=== PATIENT | male | born 1945 | race Caucasian/White ===

== ENCOUNTER 2016-06-26 06:04 | Observation (INO) ==
[2016-06-26] MEDS ORDERED: ASPIRIN 325 MG TABLET PO STA (06:16)
[2016-06-26] MEDS ORDERED: ASPIRIN 325 MG TABLET ONE (06:29)
--- NOTE | 2016-06-26 06:35 | Emergency Department Note ---
Artemio Taylor Hilary, am scribing for, and in the presence of, Gio Marinelli MD 06: 24. Isis Taylor James D, MD, personally performed the services described in this documentation, ascribed by Huma Ulloa in my presence, and it is both accurate and complete 634 . Arrival - Arrival Chief Complaint: Chest Pain ED Nursing Triage Note: pt was getting ready to come up here for an outpt procedure and started having cp after realizing his bp was high. states he has a pm set at 60 but hr got up to 113 and bp dropped to 70/44. Mode of Arrival: Wheelchair Limitations: No Limitations Source: Patient, Significant other (), RN Notes Reviewed Time Seen by Provider: 06/26/16 06:11 - History of Present Illness HPI Narrative: Pt is a 70 y/o white male presenting to the ED with c/o chest pain which onset this morning. Pt states he was at home when his blood pressure got high, once he got that down his heart started racing. Pt confirms chest pain that is now resolved and SOB on exertion denies diaphoresis and pain was non radiating. Chest pain lasted about 15 min until he took a Nitro, which resolved the issue. His states that his thyroid was removed in January and that when he noticed his BP was high he started to have an "anxiety attack" which is when his chest pain started. No other complaints or problems stated in the ED. Pt has a PMHx Cardiac Dysrhythmia, CHF, CAD, HTN, MO, Pacemaker, Cardiovascular Problems, IDDM, Thyroid Disorder, and Dyslipidemia Onset (ago): minute(s) Consistency: intermittent, now resolved Quality: bloating Allergies/Adverse Reactions: Allergies Allergy/AdvReac Type Severity Reaction Status Date / Time No Known Allergies Allergy Unverified 05/09/16 04:09 Home Medications: Home Medications Medication Instructions Recorded Confirmed Type Aspirin Chew Tab 81 mg PO QAM 10/06/14 06/26/16 History Carvedilol [Coreg] 6.25 mg PO BID MDD Noon and Dinner 10/06/14 06/26/16 History times Digoxin Tab [Lanoxin Tab] 0.125 mg PO DAILY@1200 10/06/14 06/26/16 History Potassium Chloride [Klor-Con M20] 20 meq PO QAM 10/06/14 06/26/16 History Rivaroxaban [Xarelto] 15 mg PO DAILY W/SUPPER 10/06/14 06/26/16 History Calcium (Carbonate) [Caltrate 600] 1,250 mg PO BID MDD Noon and HS 03/14/1611/04 History Furosemide Tab [Lasix Tab] 20 mg PO QAM 03/14/16 06/26/16 History Levothyroxine Tab [Synthroid Tab] 137 mcg PO QAM MDD At 0600 am 03/14/16 History Multivitamin [Multivitamins] 1 each PO BEDTIME 03/14/16 06/26/16 History Nitroglycerin Sl Tab [Nitrostat] 0.4 mg SL Q5M PRN 03/14/16 06/26/16 History Pravastatin Sodium 20 mg PO BEDTIME 03/14/16 06/26/16 History Ranolazine [Ranexa] 500 mg PO BID MDD Doses at noon 03/14/16 06/26/16 History and HS Sacubitril/Valsartan [Entresto 49 1 each PO BID MDD Takes at noon 03/14/1606/26 History mg-51 mg Tablet] and HS metFORMIN [Glucophage] 500 mg PO DAILY W/SUPPER 03/14/16 06/26/16 History Cholecalciferol (Vitamin D3) 50,000 unit PO ONCE MDD Once Weekly 04/02/16 History [Vitamin D3] ALPRAZolam [Xanax] 0.5 mg PO TID PRN #30 tablet 04/27/16 06/26/16 Rx Amiodarone Tab [Cordarone Tab] 400 mg PO BID #60 tablet 04/27/16 06/26/16 Rx Magnesium Chloride [Slow Mag] 128 mg PO BID #60 tablet 04/27/16 06/26/16 Rx Mexiletine [Mexitil] 200 mg PO Q8HR #90 capsule 04/27/16 06/26/16 Rx Review of System - Review of System 12 point system: reviewed and no additional remarkable complaints except as stated - Review of System Constitutional: Absent: diaphoresis, fever Respiratory: Present: respiratory distress (SOB on exertion) Cardiovascular: Present: chest pain, dyspnea on exertion Gastrointestinal: Absent: nausea, vomiting Musculoskeletal: Absent: arm pain Neurological: Absent: weakness, confusion Medical,Surgical,& Family Hx - Medical History Cardio: History of: Cardiac Dysrhythmia (A-fib), CHF, CAD, Hypertension, MO, Pacemaker (defibulator), Cardiovascular Problems (20% Ejection fraction) Psychological: History of: Anxiety Disorders Neurology: History of: Vertigo HEENT: History of: Eye Problem (cataracts bilateral) Endocrine: History of: Diabetes Mellitus (IDDM), Dyslipidemia, Thyroid Disorder (Thyroidectomy) - Surgical History Cardiac Surgeries: Sugical HX of: Femoral-Popliteal Bypass Graft, Cardiac Catheterization, Cardiac Surgery (CABG ), Internal Defibrillator Thoracic Surgeries: Patient denies;: Organ Transplant, Lobectomy Neurologic Surgeries: Patient denies: Neurologic Surgery HEENT Surgeries: Surgical HX of: Eye Surgery (Cataracts), Thyroid 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 VITAL SIGNS: Temperature: 96.9 Pulse: 60 Respiratory: 16 Blood Pressure: 104/ 66 O2Sat: 99 HEENT: Head is normocephalic and atraumatic. Pupils are equally round and reactive to light. Extraocular movement are intact. Oropharynx is benign with moist mucous membranes. NECK: Neck is soft and supple without tenderness. There are no masses. There is no lymphadenopathy. LUNGS: Lungs are clear to auscultation bilaterally. Chest rises symmetrically. There is no chest wall tenderness. CV: Heart is regular rate and rhythm without murmurs, rubs, or gallops. ABDOMEN: Abdomen is soft, non-tender to palpation. There are no abnormal masses palpated. There is no organomegaly. Bowel sounds are present and active. SKIN: Skin is warm and dry. No rash. EXTREMITIES: Patient has full range of motion without tenderness. There is no pedal edema. NEUROLOGIC: Awake, alert, and oriented x4. Cranial nerves II through XII are grossly intact. There are no motorsensory deficits. PSYCHIATRIC: Normal affect. Anxious Mood Vital Signs: Vital Signs Temperature 96.9 F L 06/26/16 06:07 Pulse Rate 60 06/26/16 09:15 Respiratory Rate 18 06/26/16 09:15 Blood Pressure 145/81 06/26/16 09:15 O2 Sat by Pulse Oximetry 97 06/26/16 09:15 Course - Consultations Consultation #1: Discussed with Dr. Lafleur video production coordinator for Dr. Graham. Patient will be admitted to his service. Initial orders written for him. Patient care will be assumed by Dr. Lafleur on patient's arrival to the [facility]. Time: 08:59 Results - Labs CBC & BMP: 06/26/16 06:11 06/26/16 06:11 Lab Results: I have reviewed the patients labs Labs: Laboratory Tests 06/26/16 07:30 Urine Color Yellow Urine Appearance Clear Urine Urobilinogen < 2.0 H Laboratory Tests 06/26/16 06/26/16 06/26/16 06:11 06:11 06:11 WBC 8.0 Hgb 16.0 Hct 46.2 Plt Count 249 INR 1.5 Troponin I < 0.015 Laboratory Tests 06/26/16 06/26/16 06/26/16 06:11 06:11 06:11 Hct 46.2 MPV 12.4 H [place] # (Auto) 1.0 H Sodium 136 Potassium 4.3 Chloride 102 Carbon Dioxide 25 BUN 20 H Creatinine 1.70 H Glucose 125 H Total Bilirubin 1.50 H AST 63 H ALT 90 H Troponin I B-Natriuretic Peptide 121 H Globulin 3.7 H Albumin/Globulin Ratio 1.0 L 06/26/16 06:11 Hct MPV [place] # (Auto) Sodium Potassium Chloride Carbon Dioxide BUN Creatinine Glucose Total Bilirubin AST ALT Troponin I < 0.015 B-Natriuretic Peptide Globulin Albumin/Globulin Ratio Laboratory Tests 06/26/16 06/26/16 06/26/16 06:11 06:11 07:30 WBC 8.0 RBC 4.69 Hgb 16.0 B-Natriuretic Peptide 121 H Urine Color Yellow Urine Appearance Clear Urine Urobilinogen < 2.0 H - EKG EKG results: interpreted by ERMD - Impressions EKG: Electronic dual-chamber pacemaker. No further interpretation possible. - Diagnostic Findings Procedure: Chest x-ray: image reviewed by me (No pleural effusions, no cardiomegaly, no infiltrates, old median sternotomy, AICD in position with leads in place.) Disposition Clinical Impression: Chest pain, CAD (coronary artery disease), Cardiomyopathy, Anxiety Case discussed with: patient Condition: Stable
--- NOTE | 2016-06-26 06:56 | XRay Report ---
XR chest 2V Indication: Chest pain Comparison: Chest x-ray dated May 09, 2016 Technique: Frontal and lateral views of the chest Findings: Borderline heart size status post sternotomy. Cardiac pacemaker apparatus again noted. Chronic change of the lungs without focal consolidation, pleural effusion, or pneumothorax. Osseous and surrounding soft tissue structures appear grossly unchanged. IMPRESSION: No acute cardiopulmonary process demonstrated. Borderline heart size without dusty pulmonary edema. PROCEDURE INTERPRETED AT [facility] DEPARTMENT OF RADIOLOGY Final Report Signed by: Dr Merrill Elena
[2016-06-26 07:50] LABS: Basophils # 0.1 10*3/uL (0.0-0.2); Basophils % 0.6 % (0.0-0.8); Eosinophils % 0.5 % (0.00-10.9); Hematocrit 46.2 VOL% (42.0-52.0); Immature Granulocytes % 0.5 %; Immature Granulocytes Absolute 0.04 #; Lymphocytes # 1.8 10*3/uL (1.4-4.0); Lymphocytes % 22.1 % (21.2-54.2); Mean Corpuscular HGB Conc 34.6 GM/DL (32-36); Mean Corpuscular Hemoglobin 34 PG (27-34); Mean Corpuscular Volume 98.5 FL (87-102); Mean Platelet Volume 12.4 FL (9.6-12.0); Neutrophils # 5.1 10*3/uL (1.4-7.4); Neutrophils % 64.3 % (38.7-73.9); Platelet Count 249 T/CUMM (130-400); Red Blood Count 4.69 MC/CUMM (3.8-5.5); Red Cell Distribution Width 13.2 % (9.3-17.3)
[2016-06-26 07:52] LABS: Apearance,Urine CLEAR (Clear); Bilirubin,Urine Negative (Negative); Blood, Urine Negative (Negative); Glucose,Urine (UA) Negative (Negative); Hyaline Casts,Urine 4 /LPF (0-3); Ketones,Urine Negative (Negative); Mucus,Urine Occasional /LPF (Occasional); Nitrite,Urine Negative (Negative); Protein,Urine Negative; Squamous Epithelial Cell,Urine Occasional /HPF (0-10); Urine Color Yellow (Yellow); Urine Specific Gravity 1.014 (1.001-1.035); Urine Urobilinogen < 2.0 EU/DL (0.2-1.0); WBC,Urine <1 /HPF (0-6)
--- NOTE | 2016-06-26 07:54 | EKG Report ---
Stationary ECG Study [facility] Test Date: 06/26/2016 6:08:48 AM Pat Name: JOHN العلي Department: Room: Gender: M Field Nurse: : 1945 Requested by: Gio Angel Order Number: [id number] Reading MD: ALEJANDRINA MCDONALD Intervals [place] Rate: 60 P: 247 [place]: 265 QRS: 261 QRSD: 66 T: 88 QT: 390 QTc: 390 Interpretive Statements ELECTRONIC ATRIAL-VENTRICULAR PACEMAKER Electronically Signed On 07-01-16 22:50:46 CDT by ALEJANDRINA MCDONALD [email or web address]
[2016-06-26 08:03] LABS: Albumin 3.7 G/DL (3.4-5.0); Bilirubin,Total 1.5 MG/DL (0.2-1.0); Calcium 9.1 MG/DL (8.5-10.1); Magnesium 2.3 MG/DL (1.8-2.4); Potassium 4.3 MMOL/L (3.5-5.1); Total Protein 7.4 G/DL (6.4-8.3)
[2016-06-26 08:04] LABS: INR 1.5; PT Patient Result 16.1 SECS; Partial Thromboplastin Time 33.4 SECS (0-40)
--- NOTE | 2016-06-26 09:15 | EKG Report ---
Stationary ECG Study [facility] Test Date: 06/26/2016 9:14:57 AM Pat Name: JOHN العلي Department: Room: 278 Gender: M Bed Placement Coordinator: : 1945 Requested by: Gio Angel Order Number: [id number] Reading MD: ALEJANDRINA MCDONALD Intervals [place] Rate: 60 P: 202 [place]: 156 QRS: 254 QRSD: 184 T: 84 QT: 516 QTc: 516 Interpretive Statements ELECTRONIC ATRIAL PACEMAKER ELECTRONIC VENTRICULAR PACEMAKER Electronically Signed On 07-01-16 23:03:28 CDT by ALEJANDRINA MCDONALD [id number]
[2016-06-26] MEDS ORDERED: ACETAMINOPHEN 325 MG TABLET PO PRN (09:54)
[2016-06-26] MEDS ORDERED: MORPHINE 2 MG/1 ML SYRINGE IV PRN (09:54)
[2016-06-26] MEDS ORDERED: MAGNESIUM SULF RIDER 2 GM in PREMIX 1 EACH IV PRN (09:54)
[2016-06-26] MEDS ORDERED: MAGNESIUM SULF RIDER 4 GM in PREMIX 1 EACH IV PRN (09:54)
[2016-06-26] MEDS ORDERED: ONDANSETRON 4 MG/2 ML VIAL IV PRN (09:54)
[2016-06-26] MEDS ORDERED: ENOXAPARIN 40 MG/0.4 ML SYRINGE SUBCUT SCH (10:00)
[2016-06-26] MEDS: SODIUM CHLORIDE 0.9% 1,000 ML IV SCH (10:29)
--- NOTE | 2016-06-26 11:30 | Cardiology History & Physical ---
<Radhika Frankel E - Last Filed: 06/26/16 11:43> Assessment and Plan - Time spent with patient Time spent with patient: Greater than 30 minutes (due to assessment, plan, documentation, and lengthy interview with patient and ) (1) Chest pain Status: Acute Assessment and plan: SEE PLAN OF CARE LISTED BELOW. Current Visit: Yes (2) CAD (coronary artery disease) Status: Chronic Assessment and plan: SEE PLAN OF CARE LISTED BELOW. Current Visit: Yes (3) ED (generalized anxiety disorder) Status: Chronic Assessment and plan: SEE PLAN OF CARE LISTED BELOW. Current Visit: No (4) Chronic anticoagulation Status: Chronic Assessment and plan: SEE PLAN OF CARE LISTED BELOW. Current Visit: No (5) Diabetes Status: Chronic Assessment and plan: SEE PLAN OF CARE LISTED BELOW. Current Visit: No (6) Dyslipidemia Status: Chronic Assessment and plan: SEE PLAN OF CARE LISTED BELOW. Current Visit: No (7) Hypertension Status: Chronic Assessment and plan: SEE PLAN OF CARE LISTED BELOW. Current Visit: No (8) Hypothyroidism Status: Chronic Assessment and plan: SEE PLAN OF CARE LISTED BELOW. Current Visit: No (9) Ischemic cardiomyopathy Status: Chronic Assessment and plan: SEE PLAN OF CARE LISTED BELOW. Current Visit: No (10) Anxiety attack Status: Acute Assessment and plan: SEE PLAN OF CARE LISTED BELOW. Current Visit: Yes History of Present Illness Chief complaint: chest pain History of present illness: SLACK COOPER: DR. MEDINA (DR. COLE FOR EP) PCP: DR. REHMAN HAND ROUNDER: DR. ROSE ([facility] IN [place], [place]) Mr. Kelsey is a 70 year old male with a known history of coronary artery disease, ischemic cardiomyopathy, atrial flutter s/p cardioversion, chronic anticoagulation, hypertension, dyslipidemia, type 2 diabetes mellitus, renal insufficiency, and severe anxiety. He is status post thyroidectomy February 03, 2016. He is status post three[place]vessel [place] [address] Freitas. He is status post [facility] [facility] defibrillator placement in [place], [place] in 2012. He is status post Impella assisted multivessel coronary intervention with left main stent, mid LAD stent, and OM 2 stent. The patient presented to the emergency department this morning for complaints of chest pain. He reportedly had been in his usual state of health and was on his way to have a tooth pulled this morning and developed midsternal chest pain. He reports he had been very anxious over having this procedure done. Upon arrival to the surgery center, he checked his blood pressure with his home blood pressure monitor and noted his BP to be 72/43 with a HR of 113. He reports he became very concerned over these readings and subsequently took a nitroglycerin for his pain and had his bring him to the emergency room. Upon arrival at the emergency department, his HR had decreased to 65 and his blood pressure was 104/66. He has not had any subsequent epidosed of chest discomfort since. He tells me when he has these episodes, he sometimes feels as if someone is squeezing right at the base of his sternum and releases when he takes a nitroglycerin. He also reports a "gurgling" sensation that seems to radiate from his RUQ and LUQ to his epigastric region when he has this squeezing sensation. He admits a previous history of GERD, but is no longer taking medication for this. Mr. Kelsey' is present at the bedside and reports his anxiety has gotten out of control. She tells me that she is unable to be gone from her for any extended period of time without him becoming very anxious. She tells me that her 's anxiety has gotten so bad, in fact, that their primary doctor has asked her if she needed to be on anxiety medication as well. Mr. Kelsey reports he rarely ever takes his Xanax because he is "afraid of becoming addicted." He also reports checking his blood pressure numerous times every day. He tells me that he experiences this pain frequently and is unable to distinguish his "heart pain" from his anxiety. When asked if he had ever considered seeing a psychologist or psychiatrist, he admits this is not the first time this has been mentioned to him and he was not ready to make the decision to seek further assistance for his anxiety. I strongly encouraged him to consider this option as I believe it could be of great benefit to him and his . Mr. Kelsey was recently hospitalized on April 24 with chest pain and recurrent VT and atrial flutter requiring cardioversion. He was seen by Dr. Cole during that visit and his ICD settings were adjusted. He is now getting therapy for VT >140 bpm. Recent interrogation in April revealed DDDR pacing, normal lead parameters, and no recurrence of VT since he was started on high-dose amiodarone and mexiletine. He underwent cardiac catheterization on April 25, 2016 which revealed an occluded right coronary, patent left main stent, patent LAD stents with calcified vessel, patent OM stents, widely patent VG to PDA and PL branch. At that time, there was a severe mid LAD lesion which was angioplastied with a noncompliant balloon unsuccessfully. He has an appointment with his recreation therapy director, Dr. Rose, on and has an appointment to follow up with Dr. Cole on 07/03/16 at 1230 PM. ASSESSMENT/PLAN: 1. CHEST PAIN - Patient has has 3 sets of negative troponins and no acute EKG changes. I believe his chest pain is likely related to an anxiety attack. Patient underwent cardiac catheterization and was found to have an occluded RCA and 90% stenosis of the mid LAD which was unsuccessfully angioplastied. He otherwise had a patent left main stent, patent LAD stents, patent OM stents, and widely patent grafts to the PDA and PL branch. We will continue medical management of his CAD. I have strongly urged him to consider referral to psychologist/psychiatrist for further management of his anxiety. 2. CORONARY ARTERY DISEASE - Patient underwent cardiac catheterization and was found to have an occluded RCA and 90% stenosis of the mid LAD which was unsuccessfully angioplastied. He otherwise had a patent left main stent, patent LAD stents, patent OM stents, and widely patent grafts to the PDA and PL branch. Continue medical management. 3. GENERALIZED ANXIETY DISORDER - I have strongly urged him to consider referral to psychologist/psychiatrist for further management of his anxiety. He states he will consider seeing someone for this. 4. CHRONIC ANTICOAGULATION - Continue Xarelto 5. DIABETES - Accuchecks ACHS 6. DYSLIPIDEMIA - Continue statin. 7. HYPERTENSION - Continue home medications. Will monitor and adjust as needed. Patient has been instructed to limit checking his blood pressure to once daily. 8. HYPOTHYROIDISM - Continue Synthroid. Check TSH, FT4. Keep follow up appointment with Dr. Rose on . 9. ISCHEMIC CARDIOMYOPATHY - Hemodynamically stable with no overt signs of CHF. 10. ANXIETY ATTACK - I have strongly urged him to consider referral to psychologist/psychiatrist for further management of his anxiety. He states he will consider seeing someone for this. Home Medications Medication Instructions Recorded Confirmed Type Aspirin Chew Tab 81 mg PO QAM 08/19/15 05/09/17 History Carvedilol [Coreg] 6.25 mg PO DAILY@1200,2100 MDD 10/06/14 06/26/16 History Noon and Dinner times Digoxin Tab [Lanoxin Tab] 0.125 mg PO DAILY@1200 10/06/14 06/26/16 History Potassium Chloride [Klor-Con M20] 20 meq PO QAM 10/06/14 06/26/16 History Rivaroxaban [Xarelto] 15 mg PO DAILY W/SUPPER 10/06/14 06/26/16 History Calcium (Carbonate) [Caltrate 600] 1,200 mg PO BID MDD Noon and HS 03/14/1611/04 History Furosemide Tab [Lasix Tab] 20 mg PO QAM 03/14/16 06/26/16 History Levothyroxine Tab [Synthroid Tab] 137 mcg PO QAM MDD At 0600 am 03/14/16 History Nitroglycerin Sl Tab [Nitrostat] 0.4 mg SL Q5M PRN MDD 3 tabs 03/14/16 06/26/16 History Pravastatin Sodium 20 mg PO BEDTIME 03/14/16 06/26/16 History Ranolazine [Ranexa] 500 mg PO 1200,2100 MDD Doses at 03/14/16 06/26/16 History noon and HS Sacubitril/Valsartan [Entresto 49 1 each PO DAILY@1200,2100 MDD 03/14/16 History mg-51 mg Tablet] Takes at noon and HS Cholecalciferol (Vitamin D3) 50,000 unit PO ZAMBRANO MDD Once Weekly 04/02/16 History [Vitamin D3] ALPRAZolam [Xanax] 0.5 mg PO TID PRN #30 tablet MDD 04/27/16 06/26/16 Rx TID Mexiletine [Mexitil] 200 mg PO Q8HR #90 capsule 04/27/16 06/26/16 Rx Amiodarone Tab [Cordarone Tab] 200 mg PO BID 06/26/16 06/26/16 History Magnesium Chloride [Slow Mag] 64 mg PO QID 06/26/16 06/26/16 History Multivit-Min/FA/Lycopen/Lutein 1 tablet PO BEDTIME 06/26/16 06/26/16 History [Centrum Silver Men Tablet] Allergies Allergy/AdvReac Type Severity Reaction Status Date / Time No Known Allergies Allergy Unverified 05/09/16 04:09 Review of systems: - Constitutional: Present: As per HPI. Absent: anorexia, chills, daytime sleepiness, excessive sweating, fever(s), frequent falls, headache(s), increased appetite, lethargy, malaise, night sweats, stops breathing during sleep, weakness, weight gain, weight loss, fatigue. - EENT Eyes: Present: As per HPI. Absent: blurry vision, diplopia, loss of vision Ears: Present: As per HPI. Absent: decreased hearing, ear discharge, ear pain Nose, mouth and throat: Present: As per HPI. Absent: dysphagia, epistaxis, headache(s), hoarseness, lip swelling, nasal congestion, neck mass, neck pain, sinus pressure, sore throat, throat swelling, tongue swelling, vertigo - Cardiovascular: Present: chest pain at rest, dyspnea, as per HPI. Absent: chest pain with activity, dyspnea on exertion, edema, claudication, diaphoresis , radiating jaw, neck or arm pain, lightheadedness, orthopnea, palpitations, PND - Respiratory: Present: dyspnea, as per HPI. Absent: dyspnea on exertion, cough , hemoptysis, wheezing, snoring, pain on inspiration - Gastrointestinal: Present: As per HPI. Absent: abdominal pain, bloating, change in bowel habits, constipation, diarrhea, heartburn, hematemesis, hematochezia, loose stools, melena, nausea, vomiting - Genitourinary: Present: As per HPI. Absent: difficulty urinating, dysuria, flank pain, hematuria, nocturia, urinary frequency, urinary incontinence - Musculoskeletal: Present: As per HPI. Absent: arthralgias, back pain, joint swelling, limited range of motion, muscle cramps, muscle weakness, myalgias - Neurological: Present:abnormal speech (stuttering present since thyroidectomy) , As per HPI. Absent: abnormal gait, behavioral changes, confusion, convulsions , disequilibrium, dizziness, focal weakness, frequent falls, headache(s), memory loss, numbness, paresthesias, radicular pain, syncope, tremor(s) - Psychiatric: Present: anxiety, As per HPI. Absent: confusion, depression, panic attacks - Endocrine: Present: cold intolerance, fatigue, As per HPI. Absent: heat intolerance, polydipsia, polyphagia - Hematologic/Lymphatic: Present: As per HPI. Absent: easy bleeding, easy bruising, lymphadenopathy Medical,Surgical,& Family Hx - Medical History Cardio: History of: Cardiac Dysrhythmia (A-fib), CHF, CAD, Hypertension, [place], Pacemaker (defibulator), Cardiovascular Problems (20% Ejection fraction) Psychological: History of: Anxiety Disorders, Depression Neurology: History of: Vertigo HEENT: History of: Eye Problem (cataracts bilateral) Endocrine: History of: Diabetes Mellitus (IDDM), Dyslipidemia, Thyroid Disorder (Thyroidectomy) Gastrointestinal: History of: GERD - Surgical History Cardiac Surgeries: Sugical HX of: Femoral-Popliteal Bypass Graft, Cardiac Catheterization, Cardiac Surgery (CABG 1990), Internal Defibrillator Thoracic Surgeries: Patient denies;: Organ Transplant, Lobectomy Neurologic Surgeries: Patient denies: Neurologic Surgery HEENT Surgeries: Surgical HX of: Eye Surgery (Cataracts), Thyroid Surgery (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) Abdominal Surgeries: Surgical HX of: Colonoscopy (2013) Orthopedic Surgeries: Surgical HX of;: Implanted Devices (PM/Defibrilator) - Family History Family History: Reports;: Family Heart Disease (mother), Family Hypertension ( mother), Family Stroke (mother) - Social History Smoking Status: Former smoker Frequency of Alcohol Use: None Type of Drug Use: None Marital Status: Lives With:: Spouse Functional capacity: independent ambulation Cardiology Physical Exam - Constitutional Vitals: Vital Signs Temp Pulse Resp BP Pulse Ox 97.9 F 60 18 131/98 98 06/26/16 09:54 06/26/16 09:54 06/26/16 09:54 06/26/16 09:54 06/26/16 09:54 Intake and Output 06/25/16 06/26/16 06/26/16 22:59 06:59 14:59 Other: Weight 210 lb Patient Weight 06/27/16 06:59 Weight 210 lb Exam: General appearance: Pleasant and cooperative. Anxious. Overweight, no acute distress. - Head Head exam: Present: normal inspection, normocephalic, atraumatic. Absent: hematoma, laceration - Eye Eye exam: Present: EOMI. Absent: conjunctival injection, nystagmus, periorbital swelling, scleral icterus, laceration to eyelids Pupils: Present: PERRL. Absent: constricted, dilated, fixed, irregular, unequal - ENT ENT exam: Present: normal exam, normal external ear exam - Neck Neck exam: Present: normal inspection. Absent: lymphadenopathy, meningismus, tenderness, thyromegaly - Respiratory Respiratory exam: Present: clear to auscultation bilaterally. Absent: accessory muscle use, chest wall tenderness - Cardiovascular Cardiovascular exam: Present: regular rate and rhythm, soft systolic murmur. Absent: carotid bruit, gallop, JVD, rubs - GI/Abdominal GI/Abdominal exam: Present: normal bowel sounds, soft. Absent: distended, firm , guarding, hernia, mass, tenderness, rebound. - Extremities Exam Extremities exam: Present: normal inspection, normal capillary refill. Upper extremity pulses 2+. Lower extremity pulses 2+. Absent: calf tenderness, edema -Musculoskeletal Exam Musculoskeletal: Present: No Fluid Collection, No Pain, Normal Range of Motion - Back Exam Back exam: Present: normal inspection. Absent: muscle spasm, vertebral tenderness - Neurological Exam Neurological exam: Present: alert, oriented X3, grossly intact without resting or essential tremor - Psychiatric Psychiatric exam: Present: normal affect, Anxious - Skin Skin exam: Present: normal color, warm, dry, intact. Absent: cyanosis, diaphoretic, rash, urticaria Result/EKG - Labs CBC & BMP: 06/26/16 06:11 06/26/16 06:11 Lab Results: I have reviewed the past 24 hour labs Labs: Laboratory Results - last 24 hr 06/26/16 09:15 Troponin I < 0.015 - EKG EKG results: interpreted by me (AV paced) <Jan Lafleur - Last Filed: 06/26/16 13:35> History of Present Illness History of present illness: Patient is personally interviewed and examined and chart reviewed. His is present at this time. I discussed his case with Radhika Frankel NP. I agree with the assessment and evaluation and plan. Mr. Kelsey is a 70 year old male who is had coronary artery disease as well as AICD implantation. He has had thyroid surgery and is having his Synthroid adjusted, this is followed by an recreation therapy director in [place]. His coronary disease is as noted above and not amenable to any intervention. His ventricular tachycardia that issue but now has been stable with his present dosing of amiodarone and pacemaker. He does have a dual-chamber AICD biventricular system. He is now having a lot of anxiety for the last few months and his states he is very and just doesn't want her to leave the house. Today his episode as noted was when he was going to outpatient surgery for a dental extraction by oral surgery he became anxious and he had some chest pain at which time he used a wrist monitor that he carries with him to see what his blood pressure heart rate was. It read his blood pressure low and his heart rate fast. He though otherwise had no symptomatology. He took sublingual nitroglycerin but arrival here his blood pressure was appropriate as was his heart rate. Since admission he is had 3 negative troponins. His medications remain the same but was placed on pantoprazole on admission from the emergency room. I did discuss with the patient and his to consider going to [facility] psych unit where he can be reevaluated try to work through his anxiety issues. With their workings that he may be able to improve his overall function and quality of life. He is reluctant but will discuss this with social work which we will consult. He continues to do well with discharge tomorrow. Cardiology Physical Exam - Constitutional Vitals: Vital Signs Temp Pulse Resp BP Pulse Ox 97.3 F L 61 20 125/75 95 06/26/16 11:42 06/26/16 12:23 06/26/16 11:42 06/26/16 11:42 06/26/16 11:42 Intake and Output 06/25/16 06/26/16 06/26/16 23:59 07:59 15:59 Other: Weight 95.254 kg Patient Weight 06/26/16 23:59 Weight 95.254 kg Exam: Patient examined and agree with above. Result/EKG - Labs CBC & BMP: 06/26/16 06:11 06/26/16 06:11 Labs: Laboratory Results - last 24 hr 06/26/16 06/26/16 09:15 12:11 Troponin I < 0.015 < 0.015
[2016-06-26] MEDS ORDERED: NITROGLYCERIN SL 0.4 MG TABLET SL PRN (11:56)
[2016-06-26] MEDS ORDERED: DIGOXIN 0.125 MG TABLET PO SCH (12:00)
[2016-06-26] MEDS: RANOLAZINE 500 MG TABLET PO SCH ×2 (12:23→20:44)
[2016-06-26] MEDS: CARVEDILOL 6.25 MG TABLET PO SCH ×2 (12:23→20:44)
[2016-06-26] MEDS: PANTOPRAZOLE 40 MG TABLET PO SCH (12:23)
[2016-06-26] MEDS: SACUBITRIL/VALSARTAN 49-51 MG TABLET PO SCH ×2 (12:23→20:45)
[2016-06-26] MEDS: MAGNESIUM CHLORIDE 64 MG TABLET PO SCH ×3 (12:23→20:44)
--- NOTE | 2016-06-26 13:20 | EKG Report ---
Stationary ECG Study [facility] Test Date: 06/26/2016 1:20:18 PM Pat Name: JOHN العلي Department: Room: 278 Gender: M Hogshead Liner: NIKKIE : 1945 Requested by: Gio Angel Order Number: [id number] Reading MD: ALEJANDRINA MCDONALD Intervals [place] Rate: 60 P: 257 MT: 155 QRS: 255 QRSD: 185 T: 71 QT: 389 QTc: 389 Interpretive Statements ELECTRONIC ATRIAL PACEMAKER ELECTRONIC VENTRICULAR PACEMAKER Electronically Signed On 07-02-16 10:59:14 CDT by ALEJANDRINA MCDONALD [email or web address]
[2016-06-26] MEDS: ALPRAZolam 0.5 MG TABLET PO PRN ×2 (14:47→20:45)
--- NOTE | 2016-06-26 16:07 | Discharge Summary ---
<Radhika Frankel E - Last Filed: 06/26/16 15:44> Hospital Course - Hospital Course Hospital Course: TOWBOAT ENGINEER: DR. GRAHAM (DR. BURNETT FOR ) PCP: DR. REHMAN MEDICAL REIMBURSEMENT SPECIALIST: DR. ROSE ([facility] [place], [place]) Mr. Kelsey is a 70 year old male with a known history of coronary artery disease status post 3 vessel bypass in 1990 followed by subsequent stenting, ischemic cardiomyopathy, atrial flutter requiring cardioversion, chronic anticoagulation, AICD implantation, hypertension, dyslipidemia, type 2 diabetes mellitus, renal insufficiency, and severe anxiety. He is status post thyroidectomy February 02, 2013 and is having his Synthroid adjusted by endocrinology. He presented to the emergency department on 06/26/16 with complaints of chest pain. His episode occurred as he was on his way to outpatient surgery for dental extraction when he became very anxious and developed midsternal chest discomfort. He then checked his blood pressure and heart rate and noted that his blood pressure was low and his heart rate was elevated. He subsequently presented to the emergency department for evaluation. Mr. Kelsey is an extremely anxious individual who has a prescription for xanax that he hardly ever takes because he feels as if he will become addicted. Since admission, his blood pressure and heart rate have been well controlled. For the past several months, his anxiety has been worse and his states he doesn't want her to leave the house. We discussed with the patient and his to consider going to a [facility] where he can be evaluated and try to work through his anxiety issues. He now has an appointment with Dr. Augustine De Souza on at 2:30 PM for evaluation of his anxiety. Mr. Kelsey has had 3 negative troponins and no acute EKG changes. Diagnosis - Discharge Diagnosis (1) Chest pain Status: Resolved (2) CAD (coronary artery disease) Status: Chronic (3) ED (generalized anxiety disorder) Status: Chronic (4) Chronic anticoagulation Status: Chronic (5) Diabetes Status: Chronic (6) Dyslipidemia Status: Chronic (7) Hypertension Status: Chronic (8) Hypothyroidism Status: Chronic (9) Ischemic cardiomyopathy Status: Chronic (10) Anxiety attack Status: Acute Specialty Discharge - Follow Up or Referrals Follow up with: Augustine De Souza MD [Physician] - 07/11/16 2:30 pm Discharge Plan - Discharge Data Disposition: Disch To Home/Self Care Condition at Discharge: Stable Discharge Diet: heart healthy Activity: resume usual activities as tolerated Hygiene: no restrictions Weight Bearing at Discharge: full weight bearing Contact your physician if you experience:: fever over 101, Difficulty voiding, Redness or swelling, Nausea/Vomiting, Shortness of breath, Bleeding, pain uncontrolled by pain medications - Discharge Medications Continue Rivaroxaban [Xarelto] 15 mg PO DAILY W/SUPPER Potassium Chloride [Klor-Con M20] 20 meq PO QAM Digoxin Tab [Lanoxin Tab] 0.125 mg PO DAILY@1200 Carvedilol [Coreg] 6.25 mg PO DAILY@1200,2100 MDD Noon and Dinner times Aspirin Chew Tab 81 mg PO QAM Furosemide Tab [Lasix Tab] 20 mg PO QAM Levothyroxine Tab [Synthroid Tab] 137 mcg PO QAM MDD At 0600 am Pravastatin Sodium 20 mg PO BEDTIME Ranolazine [Ranexa] 500 mg PO 1200,2100 MDD Doses at noon and HS Sacubitril/Valsartan [Entresto 49 mg-51 mg Tablet] 1 each PO DAILY@1200,2100 MDD Takes at noon and HS Cholecalciferol (Vitamin D3) [Vitamin D3] 50,000 unit PO ZAMBRANO MDD Once Weekly ALPRAZolam [Xanax] 0.5 mg PO TID PRN #30 tablet MDD TID PRN Reason: Anxiety Mexiletine [Mexitil] 200 mg PO Q8HR #90 capsule Amiodarone Tab [Cordarone Tab] 200 mg PO BID Calcium (Carbonate) [Caltrate 600] 1,200 mg PO BID MDD Noon and HS Nitroglycerin Sl Tab [Nitrostat] 0.4 mg SL Q5M PRN MDD 3 tabs PRN Reason: Chest Pain Multivit-Min/FA/Lycopen/Lutein [Centrum Silver Men Tablet] 1 tablet PO BEDTIME Magnesium Chloride [Slow Mag] 64 mg PO QID - Follow Up or Referral Follow Up: Augustine De Souza MD [Physician] - 07/11/16 2:30 pm Hardy Graham MD [Physician] - (Keep his follow Dr. Graham is ordered.) - Forms/Instructions Exam - Constitutional Vitals: Period Temp Pulse Resp BP Sys/Guillory Pulse Ox Last 24 Hr 97.3 F-98.8 F 59-75 18-70 101-145/55-98 95-99 Exam: General appearance: Pleasant and cooperative. Anxious. Overweight, no acute distress. - Head Head exam: Present: normal inspection, normocephalic, atraumatic. Absent: hematoma, laceration - Eye Eye exam: Present: EOMI. Absent: conjunctival injection, nystagmus, periorbital swelling, scleral icterus, laceration to eyelids Pupils: Present: PERRL. Absent: constricted, dilated, fixed, irregular, unequal - ENT ENT exam: Present: normal exam, normal external ear exam - Neck Neck exam: Present: normal inspection. Absent: lymphadenopathy, meningismus, tenderness, thyromegaly - Respiratory Respiratory exam: Present: clear to auscultation bilaterally. Absent: accessory muscle use, chest wall tenderness - Cardiovascular Cardiovascular exam: Present: regular rate and rhythm, soft systolic murmur. Absent: carotid bruit, gallop, JVD, rubs - GI/Abdominal GI/Abdominal exam: Present: normal bowel sounds, soft. Absent: distended, firm , guarding, hernia, mass, tenderness, rebound. - Extremities Exam Extremities exam: Present: normal inspection, normal capillary refill. Upper extremity pulses 2+. Lower extremity pulses 2+. Absent: calf tenderness, edema -Musculoskeletal Exam Musculoskeletal: Present: No Fluid Collection, No Pain, Normal Range of Motion - Back Exam Back exam: Present: normal inspection. Absent: muscle spasm, vertebral tenderness - Neurological Exam Neurological exam: Present: alert, oriented X3, grossly intact without resting or essential tremor - Psychiatric Psychiatric exam: Present: normal affect, Anxious - Skin Skin exam: Present: normal color, warm, dry, intact. Absent: cyanosis, diaphoretic, rash, urticaria Discharge Results Labs on day of discharge: Labs from last 24 hours 06/27/16 06/27/16 06/26/16 04:33 04:33 16:23 WBC 6.2 RBC 4.03 Hgb 14.1 Hct 40.8 L MCV 101.2 MCH 35 H MCHC 34.6 RDW 13.3 Plt Count 193 D MPV 11.4 Neut % (Auto) 63.6 Lymph % (Auto) 23.8 [place] % (Auto) 11.0 Eos % (Auto) 0.6 Baso % (Auto) 0.5 Neut # (Auto) 4.0 Lymph # (Auto) 1.5 [place] # (Auto) 0.7 Eos # (Auto) 0.0 Baso # (Auto) 0.0 Immature Gran % 0.5 Nucleated RBC % 0.0 Immature Gran # 0.03 Nucleated RBCs # 0.00 Sodium 142 Potassium 4.6 Chloride 108 H Carbon Dioxide 24 Anion Gap 14.6 BUN 16 Creatinine 1.50 H GFR Calculation 58 BUN/Creatinine Ratio 10.00 Glucose 135 H POC Glucose 161 H Calculated Osmolality 285.1 Calcium 8.5 Magnesium 2.2 Troponin I Free T4 1.26 TSH 3rd Generation 9.520 H 06/26/16 06/26/16 12:11 09:15 WBC RBC Hgb Hct MCV MCH MCHC RDW Plt Count MPV Neut % (Auto) Lymph % (Auto) [place] % (Auto) Eos % (Auto) Baso % (Auto) Neut # (Auto) Lymph # (Auto) [place] # (Auto) Eos # (Auto) Baso # (Auto) Immature Gran % Nucleated RBC % Immature Gran # Nucleated RBCs # Sodium Potassium Chloride Carbon Dioxide Anion Gap BUN Creatinine GFR Calculation BUN/Creatinine Ratio Glucose POC Glucose Calculated Osmolality Calcium Magnesium Troponin I < 0.015 < 0.015 Free T4 TSH 3rd Generation DS: Provider Date of admission: 06/26/16 08:56 Primary care physician: . No PCP Attending physician on admission: Janes Olsen Consults: 06/26/16 09:58 Consult to Pharmacy [CONS] Routine Reason for Pharmacy Consult: Adjust Meds Renal Funct 06/26/16 12:46 Consult to Case Mgmt/Social Srvs [CONS] Routine Reason for Case Mgmt/Social Srvs: Discharge Planning Psychiatric Management Consult Comment: [facility] referral, referral to Dr. De Souza, psychologist. Discharging clinician: TYLER Hyde-VÍCTOR <Jan Lafleur - Last Filed: 06/27/16 07:24> Hospital Course - Hospital Course Hospital Course: Patient doing well the morning of discharge. He is has no shortness of breath chest pain other complaints. He is remaining in a paced rhythm without any dysrhythmias. He's had a good night. His appetite is good. All his cardiac enzymes were negative. No evidence of ischemic event. He's had no more anxiety attacks. He has an appointment with Dr. De Souza for follow-up. Hopefully this will be of benefit to the patient was anxiety issues. He's had no issues with anxiety since admission. I think a lot of this is he feel secure in the hospital. Discussed discharge the patient and he is agreeable. His rates maximum hospital benefit. He will keep his follow-up is our previous prescribed as an outpatient with Dr. Graham. - Time spent with patient Time with patient DS: Greater than 30 minutes
[2016-06-26] MEDS ORDERED: RIVAROXABAN 15 MG TABLET PO SCH (17:00)
[2016-06-26] MEDS: AMIODARONE 200 MG TABLET PO SCH (20:44)
[2016-06-26] MEDS: CALCIUM (CARBONATE) 600 MG TABLET PO SCH (20:45)
[2016-06-26] MEDS ORDERED: MULTIVITAMIN (CENTRUM) TABLET PO SCH (21:00)
[2016-06-26] MEDS ORDERED: PRAVASTATIN 20 MG TABLET PO SCH (21:00)
[2016-06-27 04:52] LABS: Basophils % 0.5 % (0.0-0.8); Eosinophils % 0.6 % (0.00-10.9); Hematocrit 40.8 VOL% (42.0-52.0); Hemoglobin 14.1 GM/DL (14.0-18.0); Immature Granulocytes % 0.5 %; Immature Granulocytes Absolute 0.03 #; Lymphocytes # 1.5 10*3/uL (1.4-4.0); Lymphocytes % 23.8 % (21.2-54.2); Mean Corpuscular HGB Conc 34.6 GM/DL (32-36); Mean Corpuscular Hemoglobin 35 PG (27-34); Mean Corpuscular Volume 101.2 FL (87-102); Mean Platelet Volume 11.4 FL (9.6-12.0); Monocytes # 0.7 10*3/uL (0.11-0.8); Neutrophils % 63.6 % (38.7-73.9); Platelet Count 193 T/CUMM (130-400); Red Blood Count 4.03 MC/CUMM (3.8-5.5); Red Cell Distribution Width 13.3 % (9.3-17.3); White Blood Count 6.2 T/CUMM (4-12)
[2016-06-27 05:30] LABS: Calcium 8.5 MG/DL (8.5-10.1); Free T4 (Free Thyroxine) 1.26 NG/DL (0.76-1.46); Magnesium 2.2 MG/DL (1.8-2.4); Osmolality,Calculated 285.1 MOS/KG (273-304); Potassium 4.6 MMOL/L (3.5-5.1); Thyroid Stimulating Hormone 9.52 uIU/ml (0.358-3.74)
[2016-06-27 07:46] VITALS: BP 124/74
[2016-06-27] MEDS: ALPRAZolam 0.5 MG TABLET PO PRN (07:48)
[2016-06-27] MEDS: SODIUM CHLORIDE 0.9% 1,000 ML IV SCH (07:50)
[2016-06-27] MEDS ORDERED: ASPIRIN CHEW 81 MG TABLET PO SCH (09:00)
[2016-06-27] MEDS ORDERED: LEVOTHYROXINE 137 MCG TABLET PO SCH (09:00)
[2016-06-27] MEDS ORDERED: FUROSEMIDE 20 MG TABLET PO SCH (09:00)
[2016-06-27] MEDS: MAGNESIUM CHLORIDE 64 MG TABLET PO SCH (09:52)
[2016-06-27] MEDS: AMIODARONE 200 MG TABLET PO SCH (09:52)
[2016-06-27] MEDS: CALCIUM (CARBONATE) 600 MG TABLET PO SCH (09:52)
[2016-06-27] MEDS: PANTOPRAZOLE 40 MG TABLET PO SCH (09:52)
[2016-07-01] MEDS ORDERED: ERGOCALCIFEROL 50,000 UNIT CAPSULE PO SCH (11:56)
== END 2016-06-27 10:55 | disposition home or self-care (01) ==
LOC: N.EDINP 06:04 → N.ED 06:04 → N.TELES 09:11
PROVIDERS: ADMIT Internal Medicine Cardiovascular Disease; ATTEND Internal Medicine Cardiovascular Disease

== ENCOUNTER 2017-12-18 16:35 | Observation (INO) ==
[2017-12-18 17:33] LABS: Basophils % 0.7 % (0.0-0.8); Eosinophils # 0.1 10*3/uL (0.0-0.87); Eosinophils % 2.1 % (0.00-10.9); Hematocrit 42.6 VOL% (42.0-52.0); Hemoglobin 14.6 GM/DL (14.0-18.0); Immature Granulocytes % 0.5 %; Immature Granulocytes Absolute 0.03 #; Lymphocytes # 1.1 10*3/uL (1.4-4.0); Lymphocytes % 19.8 % (21.2-54.2); Mean Corpuscular HGB Conc 34.3 GM/DL (32-36); Mean Corpuscular Hemoglobin 34 PG (27-34); Mean Corpuscular Volume 100.2 FL (87-102); Mean Platelet Volume 12.6 FL (9.6-12.0); Monocytes # 0.6 10*3/uL (0.11-0.8); Monocytes % 11.1 % (1.7-12.7); Neutrophils # 3.8 10*3/uL (1.4-7.4); Neutrophils % 65.8 % (38.7-73.9); Platelet Count 175 T/CUMM (130-400); Red Blood Count 4.25 MC/CUMM (3.8-5.5); White Blood Count 5.7 T/CUMM (4-12)
[2017-12-18 17:40] LABS: INR 1.3; PT Patient Result 13.6 SECS; Partial Thromboplastin Time 30.6 SECS (0-40)
[2017-12-18 17:49] LABS: Troponin I < 0.015 NG/ML (0.00-0.045)
[2017-12-18 17:57] LABS: Albumin 3.3 G/DL (3.4-5.0); Bilirubin,Total 1.2 MG/DL (0.2-1.0); Calcium 8.9 MG/DL (8.5-10.1); Osmolality,Calculated 285.4 MOS/KG (273-304); Potassium 4.3 MMOL/L (3.5-5.1); Total Protein 6.9 G/DL (6.4-8.3)
[2017-12-18 18:28] LABS: Apearance,Urine CLEAR (Clear); Bilirubin,Urine Negative (Negative); Blood, Urine Negative (Negative); Glucose,Urine (UA) Negative (Negative); Hyaline Casts,Urine 1 /LPF (0-3); Ketones,Urine Negative (Negative); Mucus,Urine Occasional /LPF (Occasional); Nitrite,Urine Negative (Negative); Protein,Urine Negative; Urine Color Yellow (Yellow); Urine Specific Gravity 1.014 (1.001-1.035); Urine Urobilinogen < 2.0 EU/DL (0.2-1.0); WBC,Urine <1 /HPF (0-6)
[2017-12-18] MEDS ORDERED: SODIUM PHOSPHATE ENEMA 133 ML BOTTLE RECTAL STA (19:08)
[2017-12-18 20:36] LABS: Free T4 (Free Thyroxine) 1.45 NG/DL (0.76-1.46); Thyroid Stimulating Hormone 1.75 uIU/ml (0.358-3.74)
[2017-12-18] MEDS ORDERED: POTASSIUM CHLORIDE RIDER 10 MEQ in PREMIX 1 EACH IV PRN (21:30)
[2017-12-18] MEDS ORDERED: ACETAMINOPHEN 325 MG TABLET PO PRN (21:30)
[2017-12-18] MEDS ORDERED: MAGNESIUM SULF RIDER 4 GM in PREMIX 1 EACH IV PRN ×2 (21:30→22:46)
[2017-12-18] MEDS ORDERED: MAGNESIUM SULF RIDER 2 GM in PREMIX 1 EACH IV PRN ×2 (21:30→22:46)
[2017-12-18] MEDS ORDERED: ONDANSETRON 4 MG/2 ML VIAL IV PRN (21:30)
[2017-12-18] MEDS ORDERED: DOCUSATE SODIUM 100 MG CAPSULE PO PRN (21:30)
[2017-12-18] MEDS ORDERED: ALPRAZolam 0.5 MG TABLET PO PRN (22:46)
[2017-12-18] MEDS ORDERED: NITROGLYCERIN SL 0.4 MG TABLET SL PRN (22:46)
[2017-12-18] MEDS ORDERED: GLUCAGON 1 MG VIAL IM PRN (22:46)
[2017-12-18] MEDS ORDERED: DEXTROSE 50% 25 GM/50 ML VIAL IV PRN (22:46)
[2017-12-18] MEDS ORDERED: INFLUENZA VIRUS VACCINE 0.5 ML SYRINGE IM ONE (23:03)
[2017-12-18 23:15] LABS: Troponin I < 0.015 NG/ML (0.00-0.045)
[2017-12-18] MEDS: MEXILETINE 200 MG CAPSULE PO SCH (23:35)
[2017-12-19 01:36] LABS: Troponin I 0.019 NG/ML (0.00-0.045)
[2017-12-19 05:48] LABS: Basophils % 0.5 % (0.0-0.8); Eosinophils # 0.1 10*3/uL (0.0-0.87); Eosinophils % 0.7 % (0.00-10.9); Hematocrit 41.5 VOL% (42.0-52.0); Hemoglobin 13.8 GM/DL (14.0-18.0); Immature Granulocytes % 0.2 %; Immature Granulocytes Absolute 0.02 #; Lymphocytes # 1.8 10*3/uL (1.4-4.0); Lymphocytes % 22.4 % (21.2-54.2); Mean Corpuscular HGB Conc 33.3 GM/DL (32-36); Mean Corpuscular Hemoglobin 33 PG (27-34); Mean Corpuscular Volume 99.8 FL (87-102); Mean Platelet Volume 12.6 FL (9.6-12.0); Monocytes # 0.9 10*3/uL (0.11-0.8); Monocytes % 10.6 % (1.7-12.7); Neutrophils # 5.3 10*3/uL (1.4-7.4); Neutrophils % 65.6 % (38.7-73.9); Platelet Count 170 T/CUMM (130-400); Red Blood Count 4.16 MC/CUMM (3.8-5.5); Red Cell Distribution Width 13.2 % (9.3-17.3); White Blood Count 8.1 T/CUMM (4-12)
[2017-12-19 06:08] LABS: Troponin I 0.022 NG/ML (0.00-0.045)
[2017-12-19] MEDS: MEXILETINE 200 MG CAPSULE PO SCH ×2 (06:11→13:45)
[2017-12-19] MEDS: LEVOTHYROXINE 150 MCG TABLET PO SCH ×2 (06:11→07:20)
[2017-12-19 06:34] LABS: Calcium 8.8 MG/DL (8.5-10.1); Osmolality,Calculated 282.3 MOS/KG (273-304); Potassium 3.7 MMOL/L (3.5-5.1)
[2017-12-19] MEDS: CARVEDILOL 6.25 MG TABLET PO SCH ×2 (08:30→21:40)
[2017-12-19] MEDS: ASPIRIN CHEW 81 MG TABLET PO SCH (08:30)
[2017-12-19] MEDS: ISOSORBIDE MONONITRATE 30 MG TABLET PO SCH (08:30)
[2017-12-19] MEDS: PANTOPRAZOLE 40 MG TABLET PO SCH (08:31)
[2017-12-19] MEDS: FUROSEMIDE 20 MG TABLET PO SCH (08:31)
[2017-12-19] MEDS: INSULIN REGULAR 100 UNIT/ML SUBCUT SCH ×4 (08:35→22:30)
[2017-12-19] MEDS ORDERED: ENOXAPARIN 40 MG/0.4 ML SYRINGE SUBCUT SCH (09:00)
[2017-12-19] MEDS ORDERED: DEXTROSE 50% 25 GM/50 ML VIAL IV PRN (09:50)
[2017-12-19] MEDS: RANOLAZINE 500 MG TABLET PO SCH ×2 (11:43→21:40)
[2017-12-19] MEDS: SACUBITRIL/VALSARTAN 49-51 MG TABLET PO SCH ×2 (11:43→21:40)
[2017-12-19] MEDS: DIGOXIN 0.125 MG TABLET PO SCH (11:43)
[2017-12-19] MEDS ORDERED: metFORMIN 500 MG TABLET PO SCH (17:00)
[2017-12-19] MEDS ORDERED: RIVAROXABAN 15 MG TABLET PO SCH (17:00)
[2017-12-19] MEDS ORDERED: AMIODARONE 200 MG TABLET PO SCH (17:00)
[2017-12-19] MEDS: PRAVASTATIN 40 MG TABLET PO SCH (21:40)
[2017-12-20 02:40] LABS: Basophils # 0.1 10*3/uL (0.0-0.2); Basophils % 0.8 % (0.0-0.8); Eosinophils # 0.2 10*3/uL (0.0-0.87); Eosinophils % 2.3 % (0.00-10.9); Hematocrit 41.1 VOL% (42.0-52.0); Hemoglobin 13.6 GM/DL (14.0-18.0); Immature Granulocytes % 0.3 %; Immature Granulocytes Absolute 0.02 #; Lymphocytes # 1.8 10*3/uL (1.4-4.0); Lymphocytes % 27.8 % (21.2-54.2); Mean Corpuscular HGB Conc 33.1 GM/DL (32-36); Mean Corpuscular Hemoglobin 33 PG (27-34); Mean Corpuscular Volume 100.5 FL (87-102); Mean Platelet Volume 12.4 FL (9.6-12.0); Monocytes # 0.7 10*3/uL (0.11-0.8); Monocytes % 9.9 % (1.7-12.7); Neutrophils # 3.9 10*3/uL (1.4-7.4); Neutrophils % 58.9 % (38.7-73.9); Platelet Count 166 T/CUMM (130-400); Red Blood Count 4.09 MC/CUMM (3.8-5.5); Red Cell Distribution Width 13.1 % (9.3-17.3); White Blood Count 6.6 T/CUMM (4-12)
[2017-12-20 03:13] LABS: Calcium 8.5 MG/DL (8.5-10.1); Osmolality,Calculated 281.4 MOS/KG (273-304); Potassium 3.8 MMOL/L (3.5-5.1)
[2017-12-20 03:18] LABS: Risk Ratio 2.28; VLDL CHOLESTEROL 21.8 MG/DL
[2017-12-20] MEDS: LEVOTHYROXINE 150 MCG TABLET PO SCH (06:19)
[2017-12-20] MEDS ORDERED: MAGNESIUM SULF RIDER 2 GM in PREMIX 1 EACH IV ONE (07:37)
[2017-12-20] MEDS: INSULIN REGULAR 100 UNIT/ML SUBCUT SCH ×4 (08:30→20:27)
[2017-12-20] MEDS ORDERED: HEPARIN/NACL 0.9% 2 UNITS/ML 0 ML IV ONE (10:22)
[2017-12-20] MEDS ORDERED: LIDOCAINE 1% 20 ML VIAL ONE (10:22)
[2017-12-20] MEDS ORDERED: HEPARIN/NACL 0.9% 2 UNITS/ML 500 ML IV ONE ×2 (10:24→11:23)
[2017-12-20] MEDS ORDERED: ceFAZolin 1,000 MG VIAL ONE ×2 (11:22)
[2017-12-20] MEDS ORDERED: HEPARIN/NACL 0.9% 2 UNITS/ML 1,000 ML IV ONE (11:30)
[2017-12-20] MEDS: PANTOPRAZOLE 40 MG TABLET PO SCH (12:40)
[2017-12-20] MEDS: FUROSEMIDE 20 MG TABLET PO SCH (12:40)
[2017-12-20] MEDS: CARVEDILOL 6.25 MG TABLET PO SCH ×2 (12:40→20:27)
[2017-12-20] MEDS: ISOSORBIDE MONONITRATE 30 MG TABLET PO SCH (12:40)
[2017-12-20] MEDS: ASPIRIN CHEW 81 MG TABLET PO SCH (12:40)
[2017-12-20] MEDS ORDERED: ONDANSETRON 4 MG/2 ML VIAL ONE (13:03)
[2017-12-20] MEDS ORDERED: GLYCOPYRROLATE 0.4 MG/2 ML VIAL ONE (13:03)
[2017-12-20] MEDS ORDERED: fentaNYL 100 MCG/2 ML VIAL ONE (13:03)
[2017-12-20] MEDS ORDERED: SEVOFLURANE 1 UNIT/15 MINUTE INH ONE (13:03)
[2017-12-20] MEDS ORDERED: MIDAZOLAM 2 MG/2 ML VIAL ONE (13:03)
[2017-12-20] MEDS ORDERED: ETOMIDATE 40 MG/20 ML VIAL IV ONE (13:03)
[2017-12-20] MEDS ORDERED: NEOSTIGMINE 10 MG/10 ML VIAL ONE (13:04)
[2017-12-20] MEDS ORDERED: ROCURONIUM 100 MG/10 ML VIAL IV ONE (13:04)
[2017-12-20] MEDS ORDERED: LACTATED RINGERS 1,000 ML IV ONE (13:04)
[2017-12-20] MEDS: DIGOXIN 0.125 MG TABLET PO SCH (13:46)
[2017-12-20] MEDS: SACUBITRIL/VALSARTAN 49-51 MG TABLET PO SCH ×2 (13:46→20:26)
[2017-12-20] MEDS: RANOLAZINE 500 MG TABLET PO SCH ×2 (13:47→20:26)
[2017-12-20] MEDS: MEXILETINE 200 MG CAPSULE PO SCH ×2 (13:47→22:00)
[2017-12-20 17:34] LABS: Apearance,Urine CLEAR (Clear); Bilirubin,Urine Negative (Negative); Blood, Urine Negative (Negative); Glucose,Urine (UA) Negative (Negative); Ketones,Urine Negative (Negative); Mucus,Urine Occasional /LPF (Occasional); Nitrite,Urine Negative (Negative); Protein,Urine Negative; RBC,Urine 1 /HPF (0-4); Squamous Epithelial Cell,Urine Occasional /HPF (0-10); Urine Color Yellow (Yellow); Urine Specific Gravity 1.013 (1.001-1.035); Urine Urobilinogen < 2.0 EU/DL (0.2-1.0); WBC,Urine <1 /HPF (0-6)
[2017-12-20] MEDS: AMIODARONE 200 MG TABLET PO SCH (20:26)
[2017-12-20] MEDS: PRAVASTATIN 40 MG TABLET PO SCH (20:26)
[2017-12-21 06:09] LABS: Basophils % 0.5 % (0.0-0.8); Eosinophils # 0.1 10*3/uL (0.0-0.87); Hematocrit 38.3 VOL% (42.0-52.0); Hemoglobin 13.1 GM/DL (14.0-18.0); Immature Granulocytes % 0.3 %; Immature Granulocytes Absolute 0.02 #; Lymphocytes # 1.1 10*3/uL (1.4-4.0); Lymphocytes % 16.6 % (21.2-54.2); Mean Corpuscular HGB Conc 34.2 GM/DL (32-36); Mean Corpuscular Hemoglobin 35 PG (27-34); Mean Corpuscular Volume 100.8 FL (87-102); Mean Platelet Volume 11.6 FL (9.6-12.0); Monocytes # 0.7 10*3/uL (0.11-0.8); Neutrophils # 4.7 10*3/uL (1.4-7.4); Neutrophils % 70.6 % (38.7-73.9); Platelet Count 136 T/CUMM (130-400); White Blood Count 6.6 T/CUMM (4-12)
[2017-12-21 06:38] LABS: Calcium 8.2 MG/DL (8.5-10.1); Osmolality,Calculated 277.5 MOS/KG (273-304); Potassium 3.5 MMOL/L (3.5-5.1)
[2017-12-21] MEDS: INSULIN REGULAR 100 UNIT/ML SUBCUT SCH ×4 (08:13→21:29)
[2017-12-21] MEDS: AMIODARONE 200 MG TABLET PO SCH ×2 (08:45→21:27)
[2017-12-21] MEDS: MEXILETINE 200 MG CAPSULE PO SCH ×3 (08:45→21:27)
[2017-12-21] MEDS: ISOSORBIDE MONONITRATE 30 MG TABLET PO SCH (08:45)
[2017-12-21] MEDS: ASPIRIN CHEW 81 MG TABLET PO SCH (08:45)
[2017-12-21] MEDS: CARVEDILOL 6.25 MG TABLET PO SCH ×2 (08:46→21:27)
[2017-12-21] MEDS: FUROSEMIDE 20 MG TABLET PO SCH (08:46)
[2017-12-21] MEDS: PANTOPRAZOLE 40 MG TABLET PO SCH (08:50)
[2017-12-21] MEDS: LEVOTHYROXINE 150 MCG TABLET PO SCH (10:14)
[2017-12-21] MEDS: DIGOXIN 0.125 MG TABLET PO SCH (12:24)
[2017-12-21] MEDS: SACUBITRIL/VALSARTAN 49-51 MG TABLET PO SCH ×2 (12:24→21:27)
[2017-12-21] MEDS: RANOLAZINE 500 MG TABLET PO SCH ×2 (12:24→21:27)
[2017-12-21] MEDS: PRAVASTATIN 40 MG TABLET PO SCH (21:27)
[2017-12-22 04:36] LABS: Basophils % 0.7 % (0.0-0.8); Eosinophils # 0.1 10*3/uL (0.0-0.87); Eosinophils % 2.2 % (0.00-10.9); Hematocrit 39.6 VOL% (42.0-52.0); Hemoglobin 13.1 GM/DL (14.0-18.0); Immature Granulocytes % 0.3 %; Immature Granulocytes Absolute 0.02 #; Lymphocytes # 1.4 10*3/uL (1.4-4.0); Lymphocytes % 23.5 % (21.2-54.2); Mean Corpuscular HGB Conc 33.1 GM/DL (32-36); Mean Corpuscular Hemoglobin 34 PG (27-34); Mean Corpuscular Volume 101.3 FL (87-102); Mean Platelet Volume 12.1 FL (9.6-12.0); Monocytes # 0.7 10*3/uL (0.11-0.8); Monocytes % 12.2 % (1.7-12.7); Neutrophils # 3.6 10*3/uL (1.4-7.4); Neutrophils % 61.1 % (38.7-73.9); Platelet Count 140 T/CUMM (130-400); Red Blood Count 3.91 MC/CUMM (3.8-5.5); Red Cell Distribution Width 13.1 % (9.3-17.3)
[2017-12-22 04:57] LABS: Calcium 8.4 MG/DL (8.5-10.1); Osmolality,Calculated 284.3 MOS/KG (273-304); Potassium 3.5 MMOL/L (3.5-5.1)
[2017-12-22] MEDS: LEVOTHYROXINE 150 MCG TABLET PO SCH (06:04)
[2017-12-22] MEDS: MEXILETINE 200 MG CAPSULE PO SCH ×3 (06:59→21:03)
[2017-12-22] MEDS: INSULIN REGULAR 100 UNIT/ML SUBCUT SCH ×4 (07:48→21:02)
[2017-12-22] MEDS: FUROSEMIDE 20 MG TABLET PO SCH (08:16)
[2017-12-22] MEDS: AMIODARONE 200 MG TABLET PO SCH ×2 (08:16→21:03)
[2017-12-22] MEDS: CARVEDILOL 6.25 MG TABLET PO SCH ×2 (08:17→21:03)
[2017-12-22] MEDS: ISOSORBIDE MONONITRATE 30 MG TABLET PO SCH (08:17)
[2017-12-22] MEDS: PANTOPRAZOLE 40 MG TABLET PO SCH (08:17)
[2017-12-22] MEDS: ASPIRIN CHEW 81 MG TABLET PO SCH (08:18)
[2017-12-22] MEDS: SACUBITRIL/VALSARTAN 49-51 MG TABLET PO SCH ×2 (12:41→21:37)
[2017-12-22] MEDS: DIGOXIN 0.125 MG TABLET PO SCH (12:41)
[2017-12-22] MEDS: RANOLAZINE 500 MG TABLET PO SCH ×2 (12:42→21:03)
[2017-12-22] MEDS: PRAVASTATIN 40 MG TABLET PO SCH (21:03)
[2017-12-23 02:44] LABS: Basophils % 0.5 % (0.0-0.8); Eosinophils # 0.2 10*3/uL (0.0-0.87); Eosinophils % 3.3 % (0.00-10.9); Hematocrit 37.4 VOL% (42.0-52.0); Hemoglobin 12.6 GM/DL (14.0-18.0); Immature Granulocytes % 0.2 %; Immature Granulocytes Absolute 0.01 #; Lymphocytes # 1.6 10*3/uL (1.4-4.0); Lymphocytes % 27.6 % (21.2-54.2); Mean Corpuscular HGB Conc 33.7 GM/DL (32-36); Mean Corpuscular Hemoglobin 34 PG (27-34); Mean Corpuscular Volume 100.5 FL (87-102); Mean Platelet Volume 12.3 FL (9.6-12.0); Monocytes # 0.7 10*3/uL (0.11-0.8); Monocytes % 11.8 % (1.7-12.7); Neutrophils # 3.2 10*3/uL (1.4-7.4); Neutrophils % 56.6 % (38.7-73.9); Platelet Count 139 T/CUMM (130-400); Red Blood Count 3.72 MC/CUMM (3.8-5.5); Red Cell Distribution Width 12.8 % (9.3-17.3); White Blood Count 5.7 T/CUMM (4-12)
[2017-12-23 03:10] LABS: Calcium 8.4 MG/DL (8.5-10.1); Osmolality,Calculated 284.3 MOS/KG (273-304); Potassium 3.5 MMOL/L (3.5-5.1)
[2017-12-23] MEDS: LEVOTHYROXINE 150 MCG TABLET PO SCH (06:37)
[2017-12-23] MEDS: INSULIN REGULAR 100 UNIT/ML SUBCUT SCH (07:36)
[2017-12-23 07:50] VITALS: BP 109/56
[2017-12-23] MEDS: MEXILETINE 200 MG CAPSULE PO SCH (09:46)
[2017-12-23] MEDS: FUROSEMIDE 20 MG TABLET PO SCH (10:04)
[2017-12-23] MEDS: ASPIRIN CHEW 81 MG TABLET PO SCH (10:04)
[2017-12-23] MEDS: PANTOPRAZOLE 40 MG TABLET PO SCH (10:04)
[2017-12-23] MEDS: ISOSORBIDE MONONITRATE 30 MG TABLET PO SCH (10:05)
[2017-12-23] MEDS: AMIODARONE 200 MG TABLET PO SCH (10:05)
[2017-12-23] MEDS: CARVEDILOL 6.25 MG TABLET PO SCH (10:05)
== END 2017-12-23 11:25 | disposition home or self-care (01) ==
LOC: EDUNIT# → EDBD → N.EDINP 16:35 → N.ED 16:35 → N.TELEN 22:00 → N.CC 12-20 12:54 → N.TELES 12-21 15:06
PROVIDERS: ADMIT Internal Medicine Cardiovascular Disease; ATTEND Internal Medicine Cardiovascular Disease
PROC: CLEPAVT (ICD-10-PCS; 2017-12-20 10:15)

== ENCOUNTER 2018-07-30 18:21 | Observation (INO) ==
[2018-07-30 18:56] LABS: Basophils % 0.6 % (0.0-0.8); Eosinophils # 0.1 10*3/uL (0.0-0.87); Eosinophils % 1.2 % (0.00-10.9); Hematocrit 40.8 VOL% (42.0-52.0); Hemoglobin 12.9 GM/DL (14.0-18.0); Immature Granulocytes % 0.3 %; Immature Granulocytes Absolute 0.02 #; Lymphocytes # 1.4 10*3/uL (1.4-4.0); Lymphocytes % 21.1 % (21.2-54.2); Mean Corpuscular HGB Conc 31.6 GM/DL (32-36); Mean Corpuscular Volume 96.9 FL (87-102); Mean Platelet Volume 11.7 FL (9.6-12.0); Monocytes % 11.8 % (1.7-12.7); Platelet Count 171 T/CUMM (130-400); Red Blood Count 4.21 MC/CUMM (3.8-5.5); Red Cell Distribution Width 15.4 % (9.3-17.3); White Blood Count 6.6 T/CUMM (4-12)
[2018-07-30 19:07] LABS: INR 1.3; PT Patient Result 13.7 SECS; Partial Thromboplastin Time 29.7 SECS (0-40)
[2018-07-30 19:26] LABS: Albumin 3.3 G/DL (3.4-5.0); Calcium 9.1 MG/DL (8.5-10.1); Osmolality,Calculated 284.3 MOS/KG (273-304)
[2018-07-30] MEDS ORDERED: MAGNESIUM SULF RIDER 2 GM in PREMIX 1 EACH IV PRN (20:14)
[2018-07-30] MEDS ORDERED: MAGNESIUM SULF RIDER 4 GM in PREMIX 1 EACH IV PRN (20:14)
[2018-07-30 23:12] LABS: Troponin I < 0.015 NG/ML (0.00-0.045)
[2018-07-31 04:35] LABS: Troponin I < 0.015 NG/ML (0.00-0.045)
[2018-07-31] MEDS ORDERED: NITROGLYCERIN SL 0.4 MG TABLET SL PRN (08:01)
[2018-07-31] MEDS ORDERED: ALPRAZolam 0.5 MG TABLET PO PRN (08:01)
[2018-07-31] MEDS ORDERED: MEXILETINE 200 MG CAPSULE PO SCH (09:00)
[2018-07-31] MEDS ORDERED: ASPIRIN CHEW 81 MG TABLET PO SCH (09:00)
[2018-07-31] MEDS ORDERED: FUROSEMIDE 20 MG TABLET PO SCH (09:00)
[2018-07-31] MEDS ORDERED: ISOSORBIDE MONONITRATE 30 MG TABLET PO SCH (09:00)
[2018-07-31] MEDS ORDERED: CALCIUM (CARBONATE) 600 MG TABLET PO SCH (09:00)
[2018-07-31] MEDS ORDERED: POTASSIUM CHLORIDE 20 MEQ TABLET PO SCH (09:00)
[2018-07-31] MEDS ORDERED: SACUBITRIL/VALSARTAN 49-51 MG TABLET PO SCH (09:00)
[2018-07-31] MEDS ORDERED: RANOLAZINE 500 MG TABLET PO SCH (09:00)
[2018-07-31] MEDS ORDERED: MAGNESIUM CHLORIDE 64 MG TABLET PO SCH (09:00)
[2018-07-31] MEDS: CARVEDILOL 6.25 MG TABLET PO SCH ×2 (09:01→10:03)
[2018-07-31 12:10] VITALS: BP 115/59
[2018-07-31 12:51] LABS: Troponin I < 0.015 NG/ML (0.00-0.045)
[2018-07-31] MEDS ORDERED: DIGOXIN 0.125 MG TABLET PO SCH (13:00)
[2018-07-31] MEDS ORDERED: MULTIVITAMIN (CENTRUM) TABLET PO SCH (19:00)
[2018-07-31] MEDS ORDERED: AMIODARONE 200 MG TABLET PO SCH (19:00)
[2018-07-31] MEDS ORDERED: SIMVASTATIN 20 MG TABLET PO SCH (21:00)
[2018-08-01] MEDS ORDERED: LEVOTHYROXINE 150 MCG TABLET PO SCH (07:00)
== END 2018-07-31 12:58 | disposition home or self-care (01) ==
LOC: N.EDINP 18:21 → N.ED 18:21 → N.TELES 20:32
PROVIDERS: ADMIT Internal Medicine Cardiovascular Disease; ATTEND Internal Medicine Cardiovascular Disease

== ENCOUNTER 2018-12-02 14:01 | Inpatient (IN) ==
[2018-12-02 15:15] LABS: Basophils % 0.5 % (0.0-0.8); Eosinophils # 0.1 10*3/uL (0.0-0.87); Eosinophils % 1.4 % (0.00-10.9); Hematocrit 39.3 VOL% (42.0-52.0); Hemoglobin 12.9 GM/DL (14.0-18.0); Immature Granulocytes % 0.8 %; Immature Granulocytes Absolute 0.05 #; Lymphocytes # 0.9 10*3/uL (1.4-4.0); Lymphocytes % 13.2 % (21.2-54.2); Mean Corpuscular HGB Conc 32.8 GM/DL (32-36); Mean Corpuscular Volume 93.6 FL (87-102); Mean Platelet Volume 12.3 FL (9.6-12.0); Neutrophils % 75.1 % (38.7-73.9); Platelet Count 142 T/CUMM (130-400); White Blood Count 6.5 T/CUMM (4-12)
[2018-12-02 15:31] LABS: Alanine Aminotransferase 78 U/L (16-61); Alkaline Phosphatase 232 U/L (45-117); Aspartate Amino Transferase 102 U/L (0-37); Blood Urea Nitrogen 18 MG/DL (7-18); Calcium 9.1 MG/DL (8.5-10.1); Estimated Glom Filtration Rate 70 ML/MIN; Glucose 111 MG/DL (74-106); Osmolality,Calculated 285.1 MOS/KG (273-304); Total Protein 7.3 G/DL (6.4-8.3); Troponin I < 0.015 NG/ML (0.00-0.045)
[2018-12-02] MEDS ORDERED: MAGNESIUM SULF RIDER 4 GM in PREMIX 1 EACH IV PRN (16:00)
[2018-12-02] MEDS ORDERED: diphenhydrAMINE CAP 25 MG CAPSULE PO PRN (16:00)
[2018-12-02] MEDS ORDERED: MAGNESIUM SULF RIDER 2 GM in PREMIX 1 EACH IV PRN (16:00)
[2018-12-02] MEDS ORDERED: BISACODYL 5 MG TABLET PO PRN (16:00)
[2018-12-02] MEDS ORDERED: ZALEPLON 5 MG CAPSULE PO PRN (16:00)
[2018-12-02] MEDS ORDERED: ONDANSETRON 4 MG/2 ML VIAL IV PRN (16:00)
[2018-12-02] MEDS ORDERED: POTASSIUM CHLORIDE 20 MEQ TABLET PO PRN (16:00)
[2018-12-02] MEDS ORDERED: guaiFENesin/DM ER 600-30 MG TABLET PO PRN (16:00)
[2018-12-02] MEDS ORDERED: LACTULOSE 20 GM/30 ML UDCUP PO PRN (16:00)
[2018-12-02] MEDS ORDERED: ACETAMINOPHEN 325 MG TABLET PO PRN (16:00)
[2018-12-02] MEDS ORDERED: AMIODARONE INJ 150 MG in DEXTROSE 5% 100 ML IV ONE (16:05)
[2018-12-02] MEDS ORDERED: DEXTROSE 50% 25 GM/50 ML VIAL IV PRN (16:22)
[2018-12-02] MEDS ORDERED: GLUCAGON 1 MG VIAL IM PRN (16:22)
[2018-12-02] MEDS ORDERED: AMIODARONE INJ 450 MG in DEXTROSE 5% 241 ML IV SCH (16:30)
[2018-12-02] MEDS ORDERED: NITROGLYCERIN SL 0.4 MG TABLET SL PRN (16:35)
[2018-12-02 18:37] LABS: Troponin I < 0.015 NG/ML (0.00-0.045)
[2018-12-02 21:51] LABS: Troponin I < 0.015 NG/ML (0.00-0.045)
[2018-12-02] MEDS: INSULIN LISPRO 100 UNIT/ML SUBCUT SCH ×2 (22:12→22:13)
[2018-12-02] MEDS: metFORMIN 500 MG TABLET PO SCH (22:26)
[2018-12-02] MEDS: RIVAROXABAN 15 MG TABLET PO SCH (22:27)
[2018-12-02] MEDS: MULTIVITAMIN (CENTRUM) TABLET PO SCH (22:28)
[2018-12-02] MEDS: SACUBITRIL/VALSARTAN 49-51 MG TABLET PO SCH (22:29)
[2018-12-02] MEDS: CARVEDILOL 6.25 MG TABLET PO SCH (22:29)
[2018-12-02] MEDS: RANOLAZINE 500 MG TABLET PO SCH (22:29)
[2018-12-02] MEDS: SIMVASTATIN 20 MG TABLET PO SCH (22:30)
[2018-12-02] MEDS: MAGNESIUM CHLORIDE 64 MG TABLET PO SCH (22:30)
[2018-12-03] MEDS: MEXILETINE 200 MG PO SCH ×4 (00:10→22:22)
[2018-12-03] MEDS: AMIODARONE INJ 450 MG in DEXTROSE 5% 241 ML IV SCH ×2 (04:30→20:13)
[2018-12-03 04:42] LABS: Basophils # 0.1 10*3/uL (0.0-0.2); Basophils % 0.9 % (0.0-0.8); Eosinophils # 0.1 10*3/uL (0.0-0.87); Eosinophils % 1.7 % (0.00-10.9); Hemoglobin 10.9 GM/DL (14.0-18.0); Immature Granulocytes % 0.7 %; Immature Granulocytes Absolute 0.04 #; Lymphocytes # 1.5 10*3/uL (1.4-4.0); Lymphocytes % 24.9 % (21.2-54.2); Mean Corpuscular HGB Conc 32.1 GM/DL (32-36); Mean Corpuscular Volume 95.8 FL (87-102); Mean Platelet Volume 12.4 FL (9.6-12.0); Neutrophils % 59.8 % (38.7-73.9); Platelet Count 130 T/CUMM (130-400); Red Blood Count 3.55 MC/CUMM (3.8-5.5); Red Cell Distribution Width 16.3 % (9.3-17.3); White Blood Count 5.8 T/CUMM (4-12)
[2018-12-03 05:18] LABS: Calcium 8.5 MG/DL (8.5-10.1); Osmolality,Calculated 292.7 MOS/KG (273-304)
[2018-12-03] MEDS: LEVOTHYROXINE 150 MCG TABLET PO SCH (06:41)
[2018-12-03] MEDS: INSULIN LISPRO 100 UNIT/ML SUBCUT SCH ×4 (08:56→21:24)
[2018-12-03] MEDS: ISOSORBIDE MONONITRATE 30 MG TABLET PO SCH (09:25)
[2018-12-03] MEDS: PANTOPRAZOLE 40 MG TABLET PO SCH (09:25)
[2018-12-03] MEDS: RANOLAZINE 500 MG TABLET PO SCH ×2 (09:25→22:21)
[2018-12-03] MEDS: CARVEDILOL 6.25 MG TABLET PO SCH ×2 (09:25→22:21)
[2018-12-03] MEDS: ASPIRIN CHEW 81 MG TABLET PO SCH (09:25)
[2018-12-03] MEDS: MAGNESIUM CHLORIDE 64 MG TABLET PO SCH ×3 (09:25→22:21)
[2018-12-03] MEDS: FUROSEMIDE 20 MG TABLET PO SCH (09:27)
[2018-12-03] MEDS: SACUBITRIL/VALSARTAN 49-51 MG TABLET PO SCH ×2 (10:13→22:25)
[2018-12-03] MEDS: DIGOXIN 0.125 MG TABLET PO SCH (14:20)
[2018-12-03] MEDS: metFORMIN 500 MG TABLET PO SCH (17:08)
[2018-12-03] MEDS: RIVAROXABAN 15 MG TABLET PO SCH (17:13)
[2018-12-03] MEDS: SIMVASTATIN 20 MG TABLET PO SCH (22:21)
[2018-12-03] MEDS: MULTIVITAMIN (CENTRUM) TABLET PO SCH (22:21)
[2018-12-03] MEDS: AMIODARONE 200 MG TABLET PO SCH (22:21)
[2018-12-04 04:08] LABS: Basophils % 0.7 % (0.0-0.8); Eosinophils # 0.1 10*3/uL (0.0-0.87); Eosinophils % 2.2 % (0.00-10.9); Hemoglobin 10.7 GM/DL (14.0-18.0); Immature Granulocytes % 0.3 %; Immature Granulocytes Absolute 0.02 #; Lymphocytes # 1.5 10*3/uL (1.4-4.0); Lymphocytes % 25.8 % (21.2-54.2); Mean Corpuscular HGB Conc 32.4 GM/DL (32-36); Mean Corpuscular Volume 94.3 FL (87-102); Mean Platelet Volume 12.3 FL (9.6-12.0); Monocytes % 12.9 % (1.7-12.7); Neutrophils % 58.1 % (38.7-73.9); Platelet Count 122 T/CUMM (130-400); Red Cell Distribution Width 16.1 % (9.3-17.3)
[2018-12-04 04:41] LABS: Calcium 8.7 MG/DL (8.5-10.1); Osmolality,Calculated 288.8 MOS/KG (273-304)
[2018-12-04] MEDS: LEVOTHYROXINE 150 MCG TABLET PO SCH (06:22)
[2018-12-04] MEDS: INSULIN LISPRO 100 UNIT/ML SUBCUT SCH ×2 (07:53→12:03)
[2018-12-04] MEDS: PANTOPRAZOLE 40 MG TABLET PO SCH (08:57)
[2018-12-04] MEDS: MAGNESIUM CHLORIDE 64 MG TABLET PO SCH ×2 (08:57→13:09)
[2018-12-04] MEDS: AMIODARONE 200 MG TABLET PO SCH (08:57)
[2018-12-04] MEDS: ISOSORBIDE MONONITRATE 30 MG TABLET PO SCH (08:58)
[2018-12-04] MEDS: FUROSEMIDE 20 MG TABLET PO SCH (08:58)
[2018-12-04] MEDS: ASPIRIN CHEW 81 MG TABLET PO SCH (08:58)
[2018-12-04] MEDS: CARVEDILOL 6.25 MG TABLET PO SCH (08:58)
[2018-12-04] MEDS: MEXILETINE 200 MG PO SCH (08:58)
[2018-12-04] MEDS: SACUBITRIL/VALSARTAN 49-51 MG TABLET PO SCH (08:58)
[2018-12-04] MEDS: RANOLAZINE 500 MG TABLET PO SCH (08:58)
[2018-12-04 11:59] VITALS: BP 113/63
[2018-12-04] MEDS ORDERED: INFLUENZA VIRUS VACCINE 0.5 ML SYRINGE IM ONE (12:33)
[2018-12-04] MEDS: DIGOXIN 0.125 MG TABLET PO SCH (13:08)
[2018-12-05] MEDS ORDERED: AMIODARONE 200 MG TABLET PO SCH (09:00)
== END 2018-12-04 13:24 | disposition home or self-care (01) | DRG 309 ==
LOC: EDUNIT# → EDBD → N.EDINP 14:01 → N.ED 14:01 → N.TELES 17:35
PROVIDERS: ADMIT Internal Medicine Clinical Cardiac Electrophysiology; ATTEND Internal Medicine Clinical Cardiac Electrophysiology

== ENCOUNTER 2018-12-16 12:53 | Inpatient (IN) ==
[2018-12-16] MEDS ORDERED: MAGNESIUM SULF RIDER 2 GM in PREMIX 1 EACH IV PRN (14:37)
[2018-12-16] MEDS ORDERED: MAGNESIUM SULF RIDER 4 GM in PREMIX 1 EACH IV PRN (14:37)
[2018-12-16] MEDS ORDERED: ACETAMINOPHEN 325 MG TABLET PO PRN (14:37)
[2018-12-16] MEDS ORDERED: diphenhydrAMINE CAP 25 MG CAPSULE PO PRN (14:37)
[2018-12-16] MEDS ORDERED: POTASSIUM CHLORIDE 20 MEQ TABLET PO PRN (14:37)
[2018-12-16] MEDS ORDERED: ONDANSETRON 4 MG/2 ML VIAL IV PRN (14:37)
[2018-12-16] MEDS ORDERED: BISACODYL 5 MG TABLET PO PRN (14:37)
[2018-12-16] MEDS ORDERED: MORPHINE 4 MG/1 ML VIAL IV PRN (14:37)
[2018-12-16] MEDS ORDERED: guaiFENesin/DM ER 600-30 MG TABLET PO PRN (14:37)
[2018-12-16] MEDS ORDERED: ZALEPLON 5 MG CAPSULE PO PRN (14:37)
[2018-12-16] MEDS ORDERED: LACTULOSE 20 GM/30 ML UDCUP PO PRN (14:37)
[2018-12-16] MEDS ORDERED: NITROGLYCERIN SL 0.4 MG TABLET SL PRN (15:04)
[2018-12-16] MEDS ORDERED: DEXTROSE 50% 25 GM/50 ML VIAL IV PRN (15:10)
[2018-12-16] MEDS ORDERED: GLUCAGON 1 MG VIAL IM PRN (15:10)
[2018-12-16 15:42] LABS: Basophils # 0.1 10*3/uL (0.0-0.2); Eosinophils # 0.1 10*3/uL (0.0-0.87); Eosinophils % 1.7 % (0.00-10.9); Hematocrit 39.3 VOL% (42.0-52.0); Hemoglobin 12.8 GM/DL (14.0-18.0); Immature Granulocytes % 0.5 %; Immature Granulocytes Absolute 0.03 #; Lymphocytes # 1.1 10*3/uL (1.4-4.0); Lymphocytes % 18.9 % (21.2-54.2); Mean Corpuscular HGB Conc 32.6 GM/DL (32-36); Mean Corpuscular Volume 93.6 FL (87-102); Mean Platelet Volume 12.4 FL (9.6-12.0); Monocytes % 12.6 % (1.7-12.7); Neutrophils % 65.3 % (38.7-73.9); Platelet Count 167 T/CUMM (130-400); Red Cell Distribution Width 16.2 % (9.3-17.3); White Blood Count 5.9 T/CUMM (4-12)
[2018-12-16 15:54] LABS: Bilirubin,Total 1.2 MG/DL (0.2-1.0); Calcium 8.8 MG/DL (8.5-10.1); Osmolality,Calculated 280.5 MOS/KG (273-304); Total Protein 7.1 G/DL (6.4-8.3)
[2018-12-16] MEDS ORDERED: metFORMIN 500 MG TABLET PO SCH (17:00)
[2018-12-16] MEDS: INSULIN LISPRO 100 UNIT/ML SUBCUT SCH ×2 (17:33→20:28)
[2018-12-16] MEDS: AMIODARONE 200 MG TABLET PO SCH ×2 (17:44→20:27)
[2018-12-16] MEDS: MEXILETINE 150 MG CAPSULE PO SCH ×2 (17:44→22:20)
[2018-12-16] MEDS: RIVAROXABAN 15 MG TABLET PO SCH (17:44)
[2018-12-16] MEDS: RANOLAZINE 500 MG TABLET PO SCH (20:28)
[2018-12-16] MEDS: CARVEDILOL 6.25 MG TABLET PO SCH (20:28)
[2018-12-16] MEDS: SACUBITRIL/VALSARTAN 49-51 MG TABLET PO SCH (20:28)
[2018-12-16] MEDS: SIMVASTATIN 20 MG TABLET PO SCH (20:29)
[2018-12-16] MEDS: ALPRAZolam 0.5 MG TABLET PO PRN (20:38)
[2018-12-17 04:54] LABS: Basophils # 0.1 10*3/uL (0.0-0.2); Basophils % 0.8 % (0.0-0.8); Eosinophils # 0.1 10*3/uL (0.0-0.87); Eosinophils % 0.8 % (0.00-10.9); Hematocrit 34.5 VOL% (42.0-52.0); Hemoglobin 11.3 GM/DL (14.0-18.0); Immature Granulocytes % 0.5 %; Immature Granulocytes Absolute 0.03 #; Lymphocytes # 1.3 10*3/uL (1.4-4.0); Lymphocytes % 19.1 % (21.2-54.2); Mean Corpuscular HGB Conc 32.8 GM/DL (32-36); Monocytes % 12.8 % (1.7-12.7); Platelet Count 143 T/CUMM (130-400); Red Blood Count 3.71 MC/CUMM (3.8-5.5); Red Cell Distribution Width 16.1 % (9.3-17.3); White Blood Count 6.7 T/CUMM (4-12)
[2018-12-17 05:08] LABS: Calcium 8.7 MG/DL (8.5-10.1); Osmolality,Calculated 284.3 MOS/KG (273-304)
[2018-12-17] MEDS: MEXILETINE 150 MG CAPSULE PO SCH ×3 (06:11→21:53)
[2018-12-17] MEDS: INSULIN LISPRO 100 UNIT/ML SUBCUT SCH ×4 (08:00→21:52)
[2018-12-17] MEDS: SACUBITRIL/VALSARTAN 49-51 MG TABLET PO SCH ×2 (08:48→21:54)
[2018-12-17] MEDS: AMIODARONE 200 MG TABLET PO SCH (08:48)
[2018-12-17] MEDS: RANOLAZINE 500 MG TABLET PO SCH ×2 (08:49→21:52)
[2018-12-17] MEDS: ASPIRIN CHEW 81 MG TABLET PO SCH (08:49)
[2018-12-17] MEDS: ISOSORBIDE MONONITRATE 30 MG TABLET PO SCH (08:49)
[2018-12-17] MEDS: FUROSEMIDE 40 MG TABLET PO SCH (08:49)
[2018-12-17] MEDS: DIGOXIN 0.125 MG TABLET PO SCH (08:50)
[2018-12-17] MEDS: PANTOPRAZOLE 40 MG TABLET PO SCH (08:50)
[2018-12-17] MEDS: CARVEDILOL 6.25 MG TABLET PO SCH (08:51)
[2018-12-17] MEDS: LEVOTHYROXINE 150 MCG TABLET PO SCH (09:56)
[2018-12-17] MEDS: ALPRAZolam 0.5 MG TABLET PO PRN (10:55)
[2018-12-17] MEDS: RIVAROXABAN 15 MG TABLET PO SCH (16:43)
[2018-12-17] MEDS: SIMVASTATIN 20 MG TABLET PO SCH (21:54)
[2018-12-18] MEDS: CARVEDILOL 6.25 MG TABLET PO SCH ×2 (03:45→09:49)
[2018-12-18] MEDS: AMIODARONE 200 MG TABLET PO SCH ×2 (03:45→09:49)
[2018-12-18 05:30] LABS: Basophils % 0.8 % (0.0-0.8); Eosinophils # 0.1 10*3/uL (0.0-0.87); Eosinophils % 1.9 % (0.00-10.9); Hematocrit 36.4 VOL% (42.0-52.0); Hemoglobin 11.7 GM/DL (14.0-18.0); Immature Granulocytes % 0.2 %; Immature Granulocytes Absolute 0.01 #; Lymphocytes # 1.1 10*3/uL (1.4-4.0); Mean Corpuscular HGB Conc 32.1 GM/DL (32-36); Mean Corpuscular Volume 95.3 FL (87-102); Mean Platelet Volume 11.5 FL (9.6-12.0); Monocytes % 11.5 % (1.7-12.7); Neutrophils % 64.6 % (38.7-73.9); Platelet Count 141 T/CUMM (130-400); Red Blood Count 3.82 MC/CUMM (3.8-5.5); Red Cell Distribution Width 16.4 % (9.3-17.3); White Blood Count 5.2 T/CUMM (4-12)
[2018-12-18] MEDS: MEXILETINE 150 MG CAPSULE PO SCH ×2 (05:42→13:54)
[2018-12-18 05:45] LABS: Calcium 8.7 MG/DL (8.5-10.1); Osmolality,Calculated 281.4 MOS/KG (273-304)
[2018-12-18] MEDS: LEVOTHYROXINE 150 MCG TABLET PO SCH (06:43)
[2018-12-18] MEDS: ISOSORBIDE MONONITRATE 30 MG TABLET PO SCH (09:45)
[2018-12-18] MEDS: FUROSEMIDE 40 MG TABLET PO SCH (09:46)
[2018-12-18] MEDS: PANTOPRAZOLE 40 MG TABLET PO SCH (09:47)
[2018-12-18] MEDS: RANOLAZINE 500 MG TABLET PO SCH (09:49)
[2018-12-18] MEDS: SACUBITRIL/VALSARTAN 49-51 MG TABLET PO SCH (09:50)
[2018-12-18] MEDS: ASPIRIN CHEW 81 MG TABLET PO SCH (09:50)
[2018-12-18] MEDS: DIGOXIN 0.125 MG TABLET PO SCH (09:53)
[2018-12-18] MEDS: INSULIN LISPRO 100 UNIT/ML SUBCUT SCH ×2 (10:13→13:06)
[2018-12-18] MEDS: ALPRAZolam 0.5 MG TABLET PO PRN (15:17)
[2018-12-18 16:14] VITALS: BP 104/62
== END 2018-12-18 16:11 | disposition home or self-care (01) | DRG 309 ==
LOC: N.ED 12:53 → N.EDINP 12:53 → N.TELEN 17:06
PROVIDERS: ADMIT Nurse Practitioner; ATTEND Internal Medicine Clinical Cardiac Electrophysiology

== ENCOUNTER 2018-12-31 18:16 | Inpatient (IN) ==
[2018-12-31] MEDS ORDERED: ONDANSETRON 4 MG/2 ML VIAL IV STA (18:50)
[2018-12-31] MEDS ORDERED: ASPIRIN 325 MG TABLET PO STA (18:50)
[2018-12-31] MEDS ORDERED: SODIUM CHLORIDE 0.9% 500 ML IV STA (18:56)
[2018-12-31] MEDS ORDERED: CLORAZEPATE 3.75 MG TABLET PO PRN (19:00)
[2018-12-31] MEDS ORDERED: DEXTROSE 50% 25 GM/50 ML VIAL IV PRN (19:00)
[2018-12-31] MEDS ORDERED: MAGNESIUM SULF RIDER 2 GM in PREMIX 1 EACH IV PRN (19:00)
[2018-12-31] MEDS ORDERED: MAGNESIUM SULF RIDER 4 GM in PREMIX 1 EACH IV PRN (19:00)
[2018-12-31] MEDS ORDERED: GLUCAGON 1 MG VIAL IM PRN (19:00)
[2018-12-31] MEDS ORDERED: AMIODARONE INJ 450 MG in DEXTROSE 5% 241 ML IV SCH (19:00)
[2018-12-31 19:28] LABS: Basophils # 0.1 10*3/uL (0.0-0.2); Basophils % 0.8 % (0.0-0.8); Eosinophils # 0.1 10*3/uL (0.0-0.87); Eosinophils % 1.2 % (0.00-10.9); Hemoglobin 12.7 GM/DL (14.0-18.0); Immature Granulocytes % 0.3 %; Immature Granulocytes Absolute 0.02 #; Lymphocytes % 16.2 % (21.2-54.2); Mean Corpuscular HGB Conc 33.4 GM/DL (32-36); Mean Platelet Volume 11.8 FL (9.6-12.0); Monocytes % 9.8 % (1.7-12.7); Neutrophils % 71.7 % (38.7-73.9); Platelet Count 151 T/CUMM (130-400); Red Blood Count 4.13 MC/CUMM (3.8-5.5); Red Cell Distribution Width 16.3 % (9.3-17.3); White Blood Count 5.9 T/CUMM (4-12)
[2018-12-31 19:40] LABS: INR 1.8; PT Patient Result 19.4 SECS (9.6-12.2)
[2018-12-31 20:06] LABS: Bilirubin,Total 1.1 MG/DL (0.2-1.0); Calcium 8.6 MG/DL (8.5-10.1); Osmolality,Calculated 278.7 MOS/KG (273-304); Total Protein 6.7 G/DL (6.4-8.3)
[2018-12-31] MEDS: INSULIN REGULAR 100 UNIT/ML SUBCUT SCH (21:35)
[2019-01-01] MEDS: SODIUM CHLORIDE 0.9% 1,000 ML IV SCH ×2 (00:01→14:02)
[2019-01-01 03:56] LABS: Basophils % 0.6 % (0.0-0.8); Eosinophils # 0.1 10*3/uL (0.0-0.87); Eosinophils % 1.6 % (0.00-10.9); Hemoglobin 11.3 GM/DL (14.0-18.0); Immature Granulocytes % 0.4 %; Immature Granulocytes Absolute 0.02 #; Lymphocytes # 0.9 10*3/uL (1.4-4.0); Mean Corpuscular HGB Conc 32.3 GM/DL (32-36); Mean Corpuscular Volume 92.3 FL (87-102); Mean Platelet Volume 12.2 FL (9.6-12.0); Monocytes % 9.5 % (1.7-12.7); Neutrophils % 68.9 % (38.7-73.9); Platelet Count 135 T/CUMM (130-400); Red Blood Count 3.79 MC/CUMM (3.8-5.5); Red Cell Distribution Width 16.2 % (9.3-17.3); White Blood Count 4.9 T/CUMM (4-12)
[2019-01-01 04:27] LABS: Albumin 2.4 G/DL (3.4-5.0); Calcium 8.2 MG/DL (8.5-10.1); Osmolality,Calculated 277.7 MOS/KG (273-304); Risk Ratio 2.16; Thyroid Stimulating Hormone 5.19 uIU/ml (0.358-3.74); Total Protein 5.9 G/DL (6.4-8.3); VLDL CHOLESTEROL 15.8 MG/DL
[2019-01-01] MEDS: INSULIN REGULAR 100 UNIT/ML SUBCUT SCH ×4 (08:57→21:50)
[2019-01-01] MEDS ORDERED: NITROGLYCERIN SL 0.4 MG TABLET SL PRN (11:29)
[2019-01-01] MEDS ORDERED: DIGOXIN 0.125 MG TABLET PO SCH (13:00)
[2019-01-01] MEDS: RANOLAZINE 500 MG TABLET PO SCH ×2 (14:00→21:33)
[2019-01-01] MEDS: carvediloL 6.25 MG TABLET PO SCH ×2 (14:00→21:32)
[2019-01-01] MEDS: ISOSORBIDE MONONITRATE 30 MG TABLET PO SCH (14:00)
[2019-01-01] MEDS: FUROSEMIDE 20 MG TABLET PO SCH (14:00)
[2019-01-01] MEDS: SACUBITRIL/VALSARTAN 49-51 MG TABLET PO SCH ×2 (14:01→21:32)
[2019-01-01] MEDS: AMIODARONE 200 MG TABLET PO SCH ×2 (14:01→21:32)
[2019-01-01] MEDS: MEXILETINE 150 MG CAPSULE PO SCH ×2 (15:36→21:32)
[2019-01-01] MEDS: RIVAROXABAN 15 MG TABLET PO SCH (17:31)
[2019-01-01] MEDS: MAGNESIUM CHLORIDE 64 MG TABLET PO SCH (21:32)
[2019-01-01] MEDS: SIMVASTATIN 20 MG TABLET PO SCH (21:33)
[2019-01-01] MEDS: MULTIVITAMIN (CENTRUM) TABLET PO SCH (21:33)
[2019-01-02] MEDS: LEVOTHYROXINE 150 MCG TABLET PO SCH (05:39)
[2019-01-02] MEDS: AMIODARONE 200 MG TABLET PO SCH ×2 (09:49→21:11)
[2019-01-02] MEDS: INSULIN REGULAR 100 UNIT/ML SUBCUT SCH ×4 (09:49→21:14)
[2019-01-02] MEDS: SACUBITRIL/VALSARTAN 49-51 MG TABLET PO SCH ×2 (09:50→21:11)
[2019-01-02] MEDS: MEXILETINE 150 MG CAPSULE PO SCH ×3 (09:50→21:11)
[2019-01-02] MEDS: FUROSEMIDE 20 MG TABLET PO SCH (09:50)
[2019-01-02] MEDS: ISOSORBIDE MONONITRATE 30 MG TABLET PO SCH (09:50)
[2019-01-02] MEDS: RANOLAZINE 500 MG TABLET PO SCH ×2 (09:50→21:10)
[2019-01-02] MEDS: carvediloL 6.25 MG TABLET PO SCH ×2 (09:50→21:10)
[2019-01-02] MEDS: DIGOXIN 0.125 MG TABLET PO SCH (13:41)
[2019-01-02] MEDS ORDERED: TUBERCULIN SKIN TEST 0.1 ML SYRINGE INTRADERM ONE (13:48)
[2019-01-02] MEDS: RIVAROXABAN 15 MG TABLET PO SCH (17:25)
[2019-01-02] MEDS: MORPHINE 4 MG/1 ML VIAL IV PRN ×2 (19:55→23:21)
[2019-01-02] MEDS: ONDANSETRON 4 MG/2 ML VIAL IV PRN (20:08)
[2019-01-02] MEDS: SIMVASTATIN 20 MG TABLET PO SCH (21:10)
[2019-01-02] MEDS: MULTIVITAMIN (CENTRUM) TABLET PO SCH (21:11)
[2019-01-02] MEDS: MAGNESIUM CHLORIDE 64 MG TABLET PO SCH (21:11)
[2019-01-03] MEDS: LEVOTHYROXINE 150 MCG TABLET PO SCH (05:33)
[2019-01-03 06:55] LABS: Basophils % 0.6 % (0.0-0.8); Eosinophils # 0.1 10*3/uL (0.0-0.87); Eosinophils % 1.2 % (0.00-10.9); Hematocrit 33.7 VOL% (42.0-52.0); Hemoglobin 11.2 GM/DL (14.0-18.0); Immature Granulocytes % 0.4 %; Immature Granulocytes Absolute 0.02 #; Lymphocytes % 19.6 % (21.2-54.2); Mean Corpuscular HGB Conc 33.2 GM/DL (32-36); Mean Corpuscular Volume 91.3 FL (87-102); Mean Platelet Volume 12.1 FL (9.6-12.0); Monocytes % 12.1 % (1.7-12.7); Neutrophils % 66.1 % (38.7-73.9); Platelet Count 127 T/CUMM (130-400); Red Blood Count 3.69 MC/CUMM (3.8-5.5); Red Cell Distribution Width 16.1 % (9.3-17.3)
[2019-01-03 07:12] LABS: Calcium 8.3 MG/DL (8.5-10.1); Osmolality,Calculated 280.4 MOS/KG (273-304)
[2019-01-03] MEDS: carvediloL 6.25 MG TABLET PO SCH ×2 (08:10→20:34)
[2019-01-03] MEDS: AMIODARONE 200 MG TABLET PO SCH ×2 (08:10→20:33)
[2019-01-03] MEDS: SACUBITRIL/VALSARTAN 49-51 MG TABLET PO SCH ×2 (08:10→20:33)
[2019-01-03] MEDS: MEXILETINE 150 MG CAPSULE PO SCH ×3 (08:10→20:32)
[2019-01-03] MEDS: RANOLAZINE 500 MG TABLET PO SCH ×2 (08:10→20:33)
[2019-01-03] MEDS: FUROSEMIDE 20 MG TABLET PO SCH (08:11)
[2019-01-03] MEDS: ISOSORBIDE MONONITRATE 30 MG TABLET PO SCH (08:11)
[2019-01-03] MEDS: ALPRAZolam 0.5 MG TABLET PO PRN (08:11)
[2019-01-03] MEDS: INSULIN REGULAR 100 UNIT/ML SUBCUT SCH ×4 (08:43→20:37)
[2019-01-03] MEDS: DIGOXIN 0.125 MG TABLET PO SCH (13:29)
[2019-01-03] MEDS ORDERED: PROMETHAZINE 25 MG TABLET PO PRN (14:21)
[2019-01-03] MEDS: RIVAROXABAN 15 MG TABLET PO SCH (16:06)
[2019-01-03] MEDS: MORPHINE 4 MG/1 ML VIAL IV PRN ×2 (19:55→23:24)
[2019-01-03] MEDS: MULTIVITAMIN (CENTRUM) TABLET PO SCH (20:33)
[2019-01-03] MEDS: MAGNESIUM CHLORIDE 64 MG TABLET PO SCH (20:34)
[2019-01-03] MEDS: SIMVASTATIN 20 MG TABLET PO SCH (20:34)
[2019-01-03] MEDS: ONDANSETRON 4 MG/2 ML VIAL IV PRN (21:25)
[2019-01-04] MEDS: MORPHINE 4 MG/1 ML VIAL IV PRN ×4 (03:32→23:37)
[2019-01-04] MEDS: LEVOTHYROXINE 150 MCG TABLET PO SCH (05:33)
[2019-01-04] MEDS: INSULIN REGULAR 100 UNIT/ML SUBCUT SCH ×2 (08:18→11:57)
[2019-01-04] MEDS: SACUBITRIL/VALSARTAN 49-51 MG TABLET PO SCH ×2 (08:49→21:19)
[2019-01-04] MEDS: AMIODARONE 200 MG TABLET PO SCH ×2 (08:49→21:19)
[2019-01-04] MEDS: carvediloL 6.25 MG TABLET PO SCH ×2 (08:49→21:19)
[2019-01-04] MEDS: MEXILETINE 150 MG CAPSULE PO SCH ×3 (08:49→21:18)
[2019-01-04] MEDS: ISOSORBIDE MONONITRATE 30 MG TABLET PO SCH (08:49)
[2019-01-04] MEDS: RANOLAZINE 500 MG TABLET PO SCH ×2 (08:50→21:19)
[2019-01-04] MEDS: FUROSEMIDE 20 MG TABLET PO SCH (08:50)
[2019-01-04] MEDS: ALPRAZolam 0.5 MG TABLET PO PRN (09:58)
[2019-01-04] MEDS: DIGOXIN 0.125 MG TABLET PO SCH (12:58)
[2019-01-04] MEDS: RIVAROXABAN 15 MG TABLET PO SCH (16:36)
[2019-01-04] MEDS: MAGNESIUM CHLORIDE 64 MG TABLET PO SCH (21:18)
[2019-01-04] MEDS: SIMVASTATIN 20 MG TABLET PO SCH (21:19)
[2019-01-04] MEDS: MULTIVITAMIN (CENTRUM) TABLET PO SCH (21:19)
[2019-01-05] MEDS: LEVOTHYROXINE 150 MCG TABLET PO SCH (05:31)
[2019-01-05] MEDS: MEXILETINE 150 MG CAPSULE PO SCH (10:08)
[2019-01-05] MEDS: ISOSORBIDE MONONITRATE 30 MG TABLET PO SCH (10:08)
[2019-01-05] MEDS: carvediloL 6.25 MG TABLET PO SCH (10:08)
[2019-01-05] MEDS: MAGNESIUM CHLORIDE 64 MG TABLET PO SCH (10:08)
[2019-01-05] MEDS: FUROSEMIDE 20 MG TABLET PO SCH (10:09)
[2019-01-05] MEDS: RANOLAZINE 500 MG TABLET PO SCH (10:09)
[2019-01-05] MEDS: SACUBITRIL/VALSARTAN 49-51 MG TABLET PO SCH (10:09)
[2019-01-05] MEDS: AMIODARONE 200 MG TABLET PO SCH (10:09)
[2019-01-05 12:30] VITALS: BP 95/51
[2019-01-05] MEDS: DIGOXIN 0.125 MG TABLET PO SCH (12:52)
== END 2019-01-05 14:21 | DRG 309 ==
LOC: N.ED 18:16 → N.EDINP 19:00 → N.TELEN 19:48
PROVIDERS: ADMIT Internal Medicine Clinical Cardiac Electrophysiology; ATTEND Internal Medicine Clinical Cardiac Electrophysiology

== ENCOUNTER 2019-02-08 09:19 | Inpatient (IN) ==
[2019-02-08] MEDS ORDERED: PANTOPRAZOLE 40 MG VIAL IV STA (09:44)
[2019-02-08] MEDS ORDERED: METOCLOPRAMIDE 10 MG/2 ML VIAL IV STA (09:44)
[2019-02-08] MEDS ORDERED: SODIUM CHLORIDE 0.9% 1,000 ML IV STA (09:44)
[2019-02-08] MEDS ORDERED: DICYCLOMINE 20 MG/2 ML AMP IM ONE (09:44)
[2019-02-08] MEDS ORDERED: ONDANSETRON 4 MG/2 ML VIAL IV STA (09:44)
[2019-02-08 10:26] LABS: Basophils % 0.2 % (0.0-0.8); Eosinophils % 0.1 % (0.00-10.9); Hematocrit 35.9 VOL% (42.0-52.0); Immature Granulocytes % 0.6 %; Immature Granulocytes Absolute 0.05 #; Lymphocytes # 0.9 10*3/uL (1.4-4.0); Lymphocytes % 9.7 % (21.2-54.2); Mean Corpuscular HGB Conc 33.4 GM/DL (32-36); Mean Corpuscular Volume 88.4 FL (87-102); Mean Platelet Volume 12.5 FL (9.6-12.0); Monocytes % 12.7 % (1.7-12.7); Neutrophils % 76.7 % (38.7-73.9); Platelet Count 126 T/CUMM (130-400); Red Blood Count 4.06 MC/CUMM (3.8-5.5); White Blood Count 8.8 T/CUMM (4-12)
[2019-02-08 10:46] LABS: Alanine Aminotransferase 103 U/L (16-61); Albumin 2.4 G/DL (3.4-5.0); Alkaline Phosphatase 210 U/L (45-117); Amylase 20 U/L (25-115); Aspartate Amino Transferase 159 U/L (0-37); Blood Urea Nitrogen 33 MG/DL (7-18); Calcium 8.3 MG/DL (8.5-10.1); Estimated Glom Filtration Rate 51 ML/MIN; Glucose 116 MG/DL (74-106); Osmolality,Calculated 277.1 MOS/KG (273-304); Total Protein 6.4 G/DL (6.4-8.3); Troponin I < 0.015 NG/ML (0.00-0.045)
[2019-02-08 11:20] LABS: Apearance,Urine CLEAR (Clear); Bilirubin,Urine Negative (Negative); Blood, Urine Negative (Negative); Glucose,Urine (UA) Negative (Negative); Hyaline Casts,Urine 3 /LPF (0-3); Ketones,Urine Negative (Negative); Mucus,Urine Occasional /LPF (Occasional); Nitrite,Urine Negative (Negative); Protein,Urine Negative; Urine Color Amber (Yellow); Urine Specific Gravity 1.021 (1.001-1.035); Urine Urobilinogen < 2.0 EU/DL (0.2-1.0); WBC,Urine <1 /HPF (0-6)
[2019-02-08] MEDS ORDERED: metroNIDAZOLE INJ 500 MG in PREMIX 1 EACH IV STA (11:49)
[2019-02-08] MEDS ORDERED: ALBUTEROL/IPRATROPIUM 3 ML NEB RESP TX STA (11:49)
[2019-02-08] MEDS ORDERED: cefTRIAXone 1,000 MG in SODIUM CHLORIDE 0.9% 100 ML IV STA (11:49)
[2019-02-08] MEDS ORDERED: ACETAMINOPHEN 325 MG TABLET PO PRN (12:54)
[2019-02-08] MEDS ORDERED: BISACODYL 5 MG TABLET PO PRN (12:54)
[2019-02-08] MEDS ORDERED: ALBUTEROL 2.5 MG/3 ML NEB RESP TX PRN (12:54)
[2019-02-08] MEDS ORDERED: MORPHINE 4 MG/1 ML VIAL IV PRN (12:54)
[2019-02-08] MEDS ORDERED: guaiFENesin/DM ER 600-30 MG TABLET PO PRN (12:54)
[2019-02-08] MEDS ORDERED: ALPRAZolam 0.5 MG TABLET PO PRN (13:33)
[2019-02-08] MEDS ORDERED: PROMETHAZINE 25 MG TABLET PO PRN (13:33)
[2019-02-08] MEDS ORDERED: DEXTROSE 10% 25 GM/250 ML BAG IV PRN (13:36)
[2019-02-08] MEDS ORDERED: GLUCAGON 1 MG VIAL IM PRN (13:36)
[2019-02-08] MEDS: PIPERACILLIN/TAZOBACTAM 3,375 MG in SODIUM CHLORIDE 0.9% 100 ML IV SCH ×2 (16:17→23:34)
[2019-02-08] MEDS: MEXILETINE 150 MG CAPSULE PO SCH ×2 (16:17→21:41)
[2019-02-08] MEDS: INSULIN REGULAR 100 UNIT/ML SUBCUT SCH ×2 (18:27→23:38)
[2019-02-08] MEDS ORDERED: HYDROmorphone 2 MG/1 ML VIAL IV PRN (20:20)
[2019-02-08] MEDS ORDERED: fentaNYL 12 MCG/HR PATCH TRANSDERM SCH (20:30)
[2019-02-08] MEDS: MULTIVITAMIN (CENTRUM) TABLET PO SCH (21:41)
[2019-02-08] MEDS: RANOLAZINE 500 MG TABLET PO SCH (21:41)
[2019-02-08] MEDS: carvediloL 6.25 MG TABLET PO SCH (21:41)
[2019-02-08] MEDS: SACUBITRIL/VALSARTAN 49-51 MG TABLET PO SCH (21:41)
[2019-02-08] MEDS: AMIODARONE 200 MG TABLET PO SCH (21:41)
[2019-02-08] MEDS: SIMVASTATIN 20 MG TABLET PO SCH (21:42)
[2019-02-08] MEDS: MAGNESIUM CHLORIDE 64 MG TABLET PO SCH (21:42)
[2019-02-09 03:20] LABS: Basophils % 0.3 % (0.0-0.8); Eosinophils % 0.4 % (0.00-10.9); Hematocrit 35.6 VOL% (42.0-52.0); Hemoglobin 11.7 GM/DL (14.0-18.0); Immature Granulocytes % 0.6 %; Immature Granulocytes Absolute 0.06 #; Lymphocytes # 0.9 10*3/uL (1.4-4.0); Lymphocytes % 9.1 % (21.2-54.2); Mean Corpuscular HGB Conc 32.9 GM/DL (32-36); Mean Corpuscular Volume 90.4 FL (87-102); Mean Platelet Volume 12.3 FL (9.6-12.0); Monocytes % 12.9 % (1.7-12.7); Neutrophils % 76.7 % (38.7-73.9); Platelet Count 123 T/CUMM (130-400); Red Blood Count 3.94 MC/CUMM (3.8-5.5); Red Cell Distribution Width 18.1 % (9.3-17.3); White Blood Count 9.8 T/CUMM (4-12)
[2019-02-09 03:35] LABS: Bilirubin,Total 1.3 MG/DL (0.2-1.0); Calcium 7.9 MG/DL (8.5-10.1); Osmolality,Calculated 284.7 MOS/KG (273-304); Total Protein 5.8 G/DL (6.4-8.3)
[2019-02-09] MEDS: INSULIN REGULAR 100 UNIT/ML SUBCUT SCH ×3 (06:02→18:28)
[2019-02-09] MEDS: LEVOTHYROXINE 150 MCG TABLET PO SCH (06:03)
[2019-02-09] MEDS ORDERED: DIGOXIN 0.125 MG TABLET PO SCH (09:00)
[2019-02-09] MEDS: PIPERACILLIN/TAZOBACTAM 3,375 MG in SODIUM CHLORIDE 0.9% 100 ML IV SCH ×2 (09:51→17:50)
[2019-02-09] MEDS: SACUBITRIL/VALSARTAN 49-51 MG TABLET PO SCH ×2 (09:54→21:40)
[2019-02-09] MEDS: RANOLAZINE 500 MG TABLET PO SCH ×2 (09:54→21:38)
[2019-02-09] MEDS: MEXILETINE 150 MG CAPSULE PO SCH ×3 (09:54→21:39)
[2019-02-09] MEDS: MAGNESIUM CHLORIDE 64 MG TABLET PO SCH ×2 (09:54→21:39)
[2019-02-09] MEDS: carvediloL 6.25 MG TABLET PO SCH ×2 (09:54→21:37)
[2019-02-09] MEDS: AMIODARONE 200 MG TABLET PO SCH ×2 (09:54→21:37)
[2019-02-09] MEDS: ISOSORBIDE MONONITRATE 30 MG TABLET PO SCH (09:54)
[2019-02-09] MEDS: PANTOPRAZOLE 40 MG TABLET PO SCH (09:55)
[2019-02-09] MEDS ORDERED: MORPHINE 4 MG/1 ML VIAL IV ONE (10:09)
[2019-02-09] MEDS: SIMVASTATIN 20 MG TABLET PO SCH (21:39)
[2019-02-09] MEDS: MULTIVITAMIN (CENTRUM) TABLET PO SCH (21:40)
[2019-02-10] MEDS: INSULIN REGULAR 100 UNIT/ML SUBCUT SCH ×4 (00:52→17:59)
[2019-02-10] MEDS: PIPERACILLIN/TAZOBACTAM 3,375 MG in SODIUM CHLORIDE 0.9% 100 ML IV SCH ×3 (02:42→21:50)
[2019-02-10 06:30] LABS: Basophils % 0.2 % (0.0-0.8); Eosinophils # 0.1 10*3/uL (0.0-0.87); Eosinophils % 0.8 % (0.00-10.9); Hematocrit 36.4 VOL% (42.0-52.0); Hemoglobin 11.7 GM/DL (14.0-18.0); Immature Granulocytes % 0.7 %; Immature Granulocytes Absolute 0.07 #; Lymphocytes % 10.2 % (21.2-54.2); Mean Corpuscular HGB Conc 32.1 GM/DL (32-36); Mean Corpuscular Volume 90.8 FL (87-102); Mean Platelet Volume 12.3 FL (9.6-12.0); Monocytes % 10.6 % (1.7-12.7); Neutrophils % 77.5 % (38.7-73.9); Platelet Count 153 T/CUMM (130-400); Red Blood Count 4.01 MC/CUMM (3.8-5.5); Red Cell Distribution Width 18.6 % (9.3-17.3); White Blood Count 9.8 T/CUMM (4-12)
[2019-02-10 06:33] LABS: INR 1.2; PT Patient Result 13.4 SECS (9.6-12.2)
[2019-02-10] MEDS: LEVOTHYROXINE 150 MCG TABLET PO SCH (06:44)
[2019-02-10 06:53] LABS: Osmolality,Calculated 283.8 MOS/KG (273-304)
[2019-02-10 06:57] LABS: Albumin 1.8 G/DL (3.4-5.0); Bilirubin,Total 1.6 MG/DL (0.2-1.0); Calcium 8.1 MG/DL (8.5-10.1); Osmolality,Calculated 285.7 MOS/KG (273-304); Total Protein 5.8 G/DL (6.4-8.3)
[2019-02-10] MEDS ORDERED: FUROSEMIDE 20 MG/2 ML VIAL IV ONE (08:02)
[2019-02-10] MEDS ORDERED: ALBUMIN 25% 25 GM in PREMIX 1 EACH IV ONE (08:12)
[2019-02-10] MEDS: ISOSORBIDE MONONITRATE 30 MG TABLET PO SCH (10:09)
[2019-02-10] MEDS: MAGNESIUM CHLORIDE 64 MG TABLET PO SCH ×2 (10:09→21:50)
[2019-02-10] MEDS: RANOLAZINE 500 MG TABLET PO SCH ×2 (10:09→21:50)
[2019-02-10] MEDS: MEXILETINE 150 MG CAPSULE PO SCH ×3 (10:10→21:50)
[2019-02-10] MEDS: carvediloL 6.25 MG TABLET PO SCH ×2 (10:10→21:50)
[2019-02-10] MEDS: AMIODARONE 200 MG TABLET PO SCH ×2 (10:10→22:10)
[2019-02-10] MEDS: SACUBITRIL/VALSARTAN 49-51 MG TABLET PO SCH ×2 (10:10→21:50)
[2019-02-10] MEDS: PANTOPRAZOLE 40 MG TABLET PO SCH (10:10)
[2019-02-10 12:41] LABS: Hepatitis B Core IgM Quant < 0.05 Index; Hepatitis B Surface Ag Quant 0.38 Index; Hepatitis B Surface Ag Result Negative (Negative); Hepatitis C Virus Ab Quant 0.13 Index; Hepatitis C Virus Ab Result Negative (Negative)
[2019-02-10] MEDS ORDERED: fentaNYL 25 MCG/HR PATCH TRANSDERM SCH (13:00)
[2019-02-10] MEDS: DOCUSATE SODIUM 100 MG CAPSULE PO SCH ×2 (14:56→21:50)
[2019-02-10] MEDS: CYPROHEPTADINE 4 MG TABLET PO SCH ×2 (14:56→21:50)
[2019-02-10] MEDS: RIVAROXABAN 15 MG TABLET PO SCH (17:49)
[2019-02-10 18:27] LABS: CDT Result Negative (Negative); CDT Specimen Source STOOL
[2019-02-10] MEDS: SIMVASTATIN 20 MG TABLET PO SCH (21:50)
[2019-02-10] MEDS: MULTIVITAMIN (CENTRUM) TABLET PO SCH (22:10)
[2019-02-11] MEDS: INSULIN REGULAR 100 UNIT/ML SUBCUT SCH ×4 (02:26→17:41)
[2019-02-11 05:35] LABS: Basophils % 0.3 % (0.0-0.8); Eosinophils # 0.1 10*3/uL (0.0-0.87); Eosinophils % 1.1 % (0.00-10.9); Hematocrit 33.9 VOL% (42.0-52.0); Hemoglobin 11.2 GM/DL (14.0-18.0); Immature Granulocytes Absolute 0.09 #; Lymphocytes % 10.4 % (21.2-54.2); Mean Corpuscular Volume 89.2 FL (87-102); Mean Platelet Volume 12.1 FL (9.6-12.0); Monocytes % 13.1 % (1.7-12.7); Neutrophils % 74.1 % (38.7-73.9); Platelet Count 141 T/CUMM (130-400); Red Cell Distribution Width 18.7 % (9.3-17.3); White Blood Count 9.4 T/CUMM (4-12)
[2019-02-11] MEDS: PIPERACILLIN/TAZOBACTAM 3,375 MG in SODIUM CHLORIDE 0.9% 100 ML IV SCH ×3 (06:08→21:19)
[2019-02-11] MEDS: LEVOTHYROXINE 150 MCG TABLET PO SCH (06:08)
[2019-02-11 06:10] LABS: Albumin 1.9 G/DL (3.4-5.0); Bilirubin,Total 1.4 MG/DL (0.2-1.0); Calcium 8.1 MG/DL (8.5-10.1); Osmolality,Calculated 286.8 MOS/KG (273-304); Total Protein 5.4 G/DL (6.4-8.3)
[2019-02-11] MEDS ORDERED: ALBUMIN 25% 25 GM in PREMIX 1 EACH IV ONE (07:42)
[2019-02-11] MEDS ORDERED: MIDODRINE 5 MG TABLET PO SCH (09:00)
[2019-02-11] MEDS: PANTOPRAZOLE 40 MG TABLET PO SCH (09:38)
[2019-02-11] MEDS: RANOLAZINE 500 MG TABLET PO SCH ×2 (09:38→21:15)
[2019-02-11] MEDS: DOCUSATE SODIUM 100 MG CAPSULE PO SCH ×2 (09:38→21:15)
[2019-02-11] MEDS: MEXILETINE 150 MG CAPSULE PO SCH ×3 (09:38→21:14)
[2019-02-11] MEDS: AMIODARONE 200 MG TABLET PO SCH ×2 (09:38→21:15)
[2019-02-11] MEDS: CYPROHEPTADINE 4 MG TABLET PO SCH ×3 (09:38→21:14)
[2019-02-11] MEDS: MAGNESIUM CHLORIDE 64 MG TABLET PO SCH ×2 (09:39→21:15)
[2019-02-11] MEDS: MIDODRINE 5 MG TABLET PO SCH ×3 (14:16→21:15)
[2019-02-11] MEDS: RIVAROXABAN 15 MG TABLET PO SCH (16:34)
[2019-02-11] MEDS: MULTIVITAMIN (CENTRUM) TABLET PO SCH (21:15)
[2019-02-11] MEDS: SIMVASTATIN 20 MG TABLET PO SCH (21:15)
[2019-02-11] MEDS: ONDANSETRON 4 MG/2 ML VIAL IV PRN (21:25)
[2019-02-12] MEDS: INSULIN REGULAR 100 UNIT/ML SUBCUT SCH ×3 (01:04→12:00)
[2019-02-12] MEDS: PIPERACILLIN/TAZOBACTAM 3,375 MG in SODIUM CHLORIDE 0.9% 100 ML IV SCH (06:08)
[2019-02-12] MEDS: LEVOTHYROXINE 150 MCG TABLET PO SCH (06:08)
[2019-02-12 06:36] LABS: Basophils % 0.2 % (0.0-0.8); Eosinophils % 0.4 % (0.00-10.9); Hematocrit 33.5 VOL% (42.0-52.0); Hemoglobin 11.1 GM/DL (14.0-18.0); Immature Granulocytes % 0.7 %; Immature Granulocytes Absolute 0.07 #; Lymphocytes # 0.7 10*3/uL (1.4-4.0); Lymphocytes % 7.3 % (21.2-54.2); Mean Corpuscular HGB Conc 33.1 GM/DL (32-36); Mean Corpuscular Volume 88.4 FL (87-102); Mean Platelet Volume 11.4 FL (9.6-12.0); Monocytes % 11.9 % (1.7-12.7); Neutrophils % 79.5 % (38.7-73.9); Platelet Count 155 T/CUMM (130-400); Red Blood Count 3.79 MC/CUMM (3.8-5.5); Red Cell Distribution Width 18.8 % (9.3-17.3); White Blood Count 10.1 T/CUMM (4-12)
[2019-02-12 07:00] LABS: Albumin 1.7 G/DL (3.4-5.0); Bilirubin,Total 1.4 MG/DL (0.2-1.0); Calcium 7.9 MG/DL (8.5-10.1); Osmolality,Calculated 282.4 MOS/KG (273-304); Total Protein 5.3 G/DL (6.4-8.3)
[2019-02-12] MEDS: MIDODRINE 5 MG TABLET PO SCH (08:31)
[2019-02-12] MEDS: MAGNESIUM CHLORIDE 64 MG TABLET PO SCH (08:31)
[2019-02-12] MEDS: CYPROHEPTADINE 4 MG TABLET PO SCH (08:31)
[2019-02-12] MEDS: RANOLAZINE 500 MG TABLET PO SCH (08:31)
[2019-02-12] MEDS: AMIODARONE 200 MG TABLET PO SCH (08:31)
[2019-02-12] MEDS: PANTOPRAZOLE 40 MG TABLET PO SCH (08:31)
[2019-02-12] MEDS: MEXILETINE 150 MG CAPSULE PO SCH (08:31)
[2019-02-12] MEDS: DOCUSATE SODIUM 100 MG CAPSULE PO SCH (08:32)
[2019-02-12] MEDS ORDERED: MORPHINE 4 MG/1 ML VIAL IV ONE (09:00)
[2019-02-12] MEDS ORDERED: fentaNYL 75 MCG/HR PATCH TRANSDERM SCH (09:00)
[2019-02-12] MEDS ORDERED: SCOPOLAMINE 1.5 MG PATCH TRANSDERM SCH (09:00)
[2019-02-12] MEDS ORDERED: LORazepam 2 MG/1 ML VIAL IV PRN (09:01)
[2019-02-12] MEDS ORDERED: HYDROmorphone 2 MG/1 ML VIAL IV SCH (09:30)
[2019-02-12] MEDS ORDERED: HYDROmorphone 2 MG/1 ML VIAL IV PRN (11:00)
[2019-02-12] MEDS: ONDANSETRON 4 MG/2 ML VIAL IV PRN (12:24)
[2019-02-12] MEDS: MORPHINE 4 MG/1 ML VIAL IV PRN ×4 (15:59→23:24)
[2019-02-13] MEDS: MORPHINE 4 MG/1 ML VIAL IV PRN ×7 (02:15→21:53)
[2019-02-13] MEDS ORDERED: chlorproMAZINE INJ 25 MG in SODIUM CHLORIDE 0.9% 100 ML IV PRN (08:31)
[2019-02-13 19:50] VITALS: BP 50/20
[2019-02-14] MEDS: MORPHINE 4 MG/1 ML VIAL IV PRN ×2 (00:08→01:13)
== END 2019-02-14 03:43 | disposition expired | DRG 193 ==
LOC: EDBD → EDUNIT# → N.ED 09:19 → N.EDINP 12:54 → N.3E 14:25 → N.5E 02-10 17:03
PROVIDERS: ADMIT Hospitalist; ATTEND Hospitalist